=== PATIENT | female | born 1965 | race Caucasian/White ===

== ENCOUNTER 2020-11-06 06:34 | Outpatient (REF) | payer OTHER, SELFPAY ==
[2020-11-06 12:20] LABS: TSH reflex Free T4 1.19 uIU/mL (0.32-4.0); Vitamin D 25-OH Total 16.5 ng/mL (>30)
[2020-11-06 12:22] LABS: Cholesterol 152 mg/dL; Glucose Fasting 114 mg/dL (60-99); HDL Cholesterol 45 mg/dL; LDL Cholesterol Calculated 72 mg/dl; Triglycerides 176 mg/dL
== END 2020-11-06 06:35 | disposition home or self-care (01) ==
LOC: HO.HMGCLDS 06:34
PROVIDERS: PCP Internal Medicine; Visit Provider Internal Medicine
DX: Z00.01 Encounter for general adult medical examination with abnormal findings (principal); I25.2 Old myocardial infarction; I25.10 Atherosclerotic heart disease of native coronary artery without angina pectoris; D47.1 Chronic myeloproliferative disease; Z87.19 Personal history of other diseases of the digestive system; Z95.5 Presence of coronary angioplasty implant and graft
CPT/HCPCS: 36415; 80061; 82306; 82947; 84443

== ENCOUNTER 2021-05-03 14:18 | Outpatient (REF) | payer OTHER, SELFPAY ==
[2021-05-03 16:56] LABS: Estimated Average Glucose 128 mg/dL; Hemoglobin A1c % 6.1 %
[2021-05-03 17:21] LABS: Vitamin D 25-OH Total 13.7 ng/mL (>30)
== END 2021-05-03 14:19 | disposition home or self-care (01) ==
LOC: HO.HMGCLDS 14:18
PROVIDERS: PCP Internal Medicine; Visit Provider Internal Medicine
DX: E55.9 Vitamin D deficiency, unspecified (principal); R73.01 Impaired fasting glucose
CPT/HCPCS: 36415; 82306; 83036

== ENCOUNTER 2021-10-22 14:27 | Outpatient (REF) | payer OTHER, SELFPAY ==
[2021-10-22 15:29] LABS: Influenza A PCR NEGATIVE (Negative); Influenza B PCR NEGATIVE (Negative); Resp Syncy Virus RNA Qual PCR NEGATIVE (Negative); SARS COV2 PCR INHOUSE POSITIVE (Negative)
== END 2021-10-22 14:28 | disposition home or self-care (01) ==
LOC: HO.LNP 14:27
PROVIDERS: Visit Provider Physician Assistant
DX: J06.9 Acute upper respiratory infection, unspecified (principal); Z20.822 Contact with and (suspected) exposure to COVID-19
CPT/HCPCS: 0241U

== ENCOUNTER 2022-05-24 08:59 | Outpatient (REF) | payer OTHER, SELFPAY ==
[2022-05-24 11:13] LABS: Estimated Average Glucose 120 mg/dL; Hemoglobin A1c % 5.8 %
[2022-05-30 06:58] LABS: Calcium (PTHI) 11.1 mg/dL (8.6-10.4); PTHI 98 pg/mL (16-77)
== END 2022-05-24 09:00 | disposition home or self-care (01) ==
LOC: HO.HMGCLDS 08:59
PROVIDERS: PCP Internal Medicine; Visit Provider Internal Medicine
DX: R73.01 Impaired fasting glucose (principal); I25.2 Old myocardial infarction; E83.52 Hypercalcemia
CPT/HCPCS: 36415; 80048; 80061; 82306; 82330; 83036; 83970; 84443

== ENCOUNTER 2022-05-28 08:57 | Outpatient (REF) | payer OTHER, SELFPAY ==
[2022-05-28 12:06] LABS: Anion Gap 13 (12-20); Blood Urea Nitrogen 13 mg/dL (9-16); Calcium 10.7 mg/dL (8.4-10.2); Carbon Dioxide 25 mmol/L (22-29); Chloride 106 mmol/L (96-108); Cholesterol 182 mg/dL; Estimated Glomerular Filt Rate > 60; Glucose Fasting 105 mg/dL (60-99); HDL Cholesterol 48 mg/dL; LDL Cholesterol Calculated 102 mg/dl; Potassium 4.2 mmol/L (3.3-5.1); Sodium 140 mmol/L (135-145); TSH reflex Free T4 0.86 uIU/mL (0.32-4.0); Triglycerides 161 mg/dL; Vitamin D 25-OH Total 17.4 ng/mL (>30)
[2022-06-02 13:38] LABS: Calcium, Ionized 5.5 mg/dL (4.8-5.6)
== END 2022-05-28 08:58 | disposition home or self-care (01) ==
LOC: HO.HMGCLDS 08:57
PROVIDERS: PCP Internal Medicine; Visit Provider Internal Medicine
DX: R73.01 Impaired fasting glucose (principal); E83.52 Hypercalcemia; E55.9 Vitamin D deficiency, unspecified; D47.1 Chronic myeloproliferative disease; I25.2 Old myocardial infarction; Z87.19 Personal history of other diseases of the digestive system
CPT/HCPCS: 36415; 80048; 80061; 82306; 82330; 84443

== ENCOUNTER → 2022-06-19 13:19 | Outpatient (BNVA) | payer OTHER, SELFPAY | PROVIDERS: PCP Internal Medicine; Visit Provider Internal Medicine Endocrinology, Diabetes & Metabolism | DX: E83.52 Hypercalcemia (principal) ==

== ENCOUNTER 2022-06-26 14:27 | Outpatient (REF) | payer OTHER, SELFPAY ==
--- NOTE | ~2022-06-26 | MM_ITS ---
EXAMINATION: BONE DENSITOMETRY CLINICAL INDICATION: Endocrine disorder, unspecified. COMPARISON: None (current study represents initial baseline exam). TECHNIQUE: Using a [employer] DXA System (software version: 13.1) manufactured by [employer], dual-energy x-ray absorptiometry was performed of the lumbar spine, left hip and left forearm radius 33%. The images are of good technical quality. Summary results are attached. FINDINGS: AP SPINE L1-L4: BMD 1.132 g/cm2, Z-score 0.3, T-score -0.4, normal. LEFT FEMUR, NECK: BMD 0.917 g/cm2, Z-score 0.0, T-score -0.9, normal. LEFT FEMUR, TOTAL: BMD 0.945 g/cm2, Z-score 0.1, T-score -0.5, normal. LEFT FOREARM RADIUS 33%: BMD 0.891 g/cm2, Z-score 0.9, T-score 0.2, normal. IDENTIFIED RISK FACTORS: Hyperparathyroidism. Low calcium intake. Menopause. HISTORY OF FRACTURE: None listed. MEDICATIONS: Vitamin D. MM/XR DEXA appendicular skeleton IMPRESSION: 1. DIAGNOSIS: Normal bone density based on the lowest T-score value of -0.9 in the femoral neck applying World Health Organization criteria. 2. 10-YEAR FRACTURE RISK PREDICTION, FRAX: According to the guidelines, FRAX calculation should only be performed on patients in the osteopenia bone density category. Therefore, FRAX was not performed on this patient.? 3. Treatment Recommendations: NOF guidelines recommend consideration for treatment in postmenopausal women and men age 50 and older presenting with the following: -A hip or vertebral (clinical or morphometric) fracture. -T-score less than or equal to -2.5 at the femoral neck or spine after appropriate evaluation to exclude secondary causes. -Low bone mass at the hip or spine and a 10-year fracture probability by FRAX of greater than or equal to 3% for hip fracture or greater than or equal to 20% for major osteoporotic fracture based on the [place] adapted WHO algorithm. 4. Other Recommendations: All treatment decisions require clinical judgment and consideration of individual patient factors, including patient preferences, comorbidities, previous drug use, risk factors not captured in the FRAX model (e.g. frailty, falls, vitamin D deficiency, increased bone turnover, interval significant decline in bone density) and possible under or overestimation of fracture risk by FRAX. FUTURE SCAN RECOMMENDATION: People with diagnosed cases of osteoporosis or at high risk for fracture should have regular bone mineral density tests. For patients eligible for Medicare, routine testing is allowed once every 2 years. The testing frequency can be increased to one year for patients who have rapidly progressing disease, those who are receiving or discontinuing medical therapy to restore bone mass, or have additional risk factors.
== END 2022-06-26 14:28 | disposition home or self-care (01) ==
LOC: HO.MAMMO 14:27
PROVIDERS: PCP Internal Medicine; Visit Provider Internal Medicine Endocrinology, Diabetes & Metabolism
DX: Z13.820 Encounter for screening for osteoporosis (principal); E34.9 Endocrine disorder, unspecified; Z78.0 Asymptomatic menopausal state
CPT/HCPCS: 77081

== ENCOUNTER 2022-06-28 08:02 | Outpatient (REF) | payer OTHER, SELFPAY ==
[2022-06-28 09:16] LABS: Albumin Level 4.7 g/dL (3.5-5.0); Calcium 10.8 mg/dL (8.4-10.2); Estimated Glomerular Filt Rate > 60
[2022-06-28 09:25] LABS: Creatinine, mg/dL 37.06
[2022-06-28 18:28] LABS: Creatinine, 24Hr Urine 1.1 G/Day (1.0-2.0); Total Volume 24 Hour Urine 3100 mL
[2022-06-29 15:44] LABS: Calcium, 24 Hr Urine 40 mg/24 h; Calcium/Creatinine Ratio 36 mg/g creat (30-275); Creatinine 24Hr Urine 1.12 g/24 h (0.50-2.15)
[2022-06-30 15:44] LABS: Calcium (PTHI) 10.9 mg/dL (8.6-10.4); PTHI 60 pg/mL (16-77)
== END 2022-06-28 08:03 | disposition home or self-care (01) ==
LOC: HO.LAB 08:02
PROVIDERS: PCP Internal Medicine; Visit Provider Internal Medicine Endocrinology, Diabetes & Metabolism
DX: E83.52 Hypercalcemia (principal)
CPT/HCPCS: 36415; 82040; 82310; 82340; 82565; 82570; 83970

== ENCOUNTER → 2022-10-17 16:37 | Outpatient (BNVA) | payer OTHER, SELFPAY | PROVIDERS: PCP Internal Medicine; Visit Provider Internal Medicine Endocrinology, Diabetes & Metabolism ==

== ENCOUNTER 2022-10-25 08:14 | Outpatient (REF) | payer OTHER, SELFPAY ==
[2022-10-25 11:50] LABS: Alanine Aminotransferase 33 U/L (0-31); Anion Gap 15 (12-20); Aspartate Amino Transferase 25 U/L (5-31); Blood Urea Nitrogen 17 mg/dL (9-16); Calcium 9.9 mg/dL (8.4-10.2); Carbon Dioxide 29 mmol/L (22-29); Chloride 105 mmol/L (96-108); Cholesterol 183 mg/dL; Estimated Glomerular Filt Rate > 60; Glucose Fasting 120 mg/dL (60-99); HDL Cholesterol 49 mg/dL; LDL Cholesterol Calculated 90 mg/dl; Potassium 4.9 mmol/L (3.3-5.1); Sodium 144 mmol/L (135-145); Triglycerides 224 mg/dL
[2022-10-25 12:08] LABS: Vitamin D 25-OH Total 34.6 ng/mL (>30)
[2022-10-28 18:28] LABS: Calcium (PTHI) 9.8 mg/dL (8.6-10.4); PTHI 75 pg/mL (16-77)
== END 2022-10-25 08:15 | disposition home or self-care (01) ==
LOC: HO.HMGCLDS 08:14
PROVIDERS: Absent Provider Internal Medicine Endocrinology, Diabetes & Metabolism; PCP Internal Medicine; Visit Provider Internal Medicine
DX: Z00.01 Encounter for general adult medical examination with abnormal findings (principal); D47.1 Chronic myeloproliferative disease; E55.9 Vitamin D deficiency, unspecified; I25.10 Atherosclerotic heart disease of native coronary artery without angina pectoris; I25.2 Old myocardial infarction; R73.01 Impaired fasting glucose; Z86.39 Personal history of other endocrine, nutritional and metabolic disease
CPT/HCPCS: 36415; 80048; 80061; 82306; 83970; 84450; 84460; 86787

== ENCOUNTER 2023-12-21 13:27 | Outpatient (AMB) | payer OTHER, SELFPAY ==
--- NOTE | 2023-12-21 13:48 | MHC.PC.OV ---
Vital Signs 12/21/23 13:49 Height 5 ft 3 in Weight 170 lb BMI 30.1 BP 120/78 Blood Pressure Location Lt brachial Position Sitting Pulse 74 Pulse Source Pulse Oximeter Pulse Oximetry (%) 98 Oxygen Delivery Method Room Air Intake Visit Reasons: PE Intake Note: pt is here for physical exam mammo: 05/09/23 pap: due colonoscopy: 2021, normal bone density: 06/2022 Outpatient Interviewing Clerk Required: No Accompanied by: Self / Same As Patient Allergies tetracycline Adverse Reaction (Unknown, Verified 12/28/23 02:28) nausea Medication List - Last Reconciled 12/28/23 by Lorraine Almaguer MD aspirin 81 mg PO DAILY atorvastatin 40 mg PO DAILY calcium crb,[id number]-genis 300-200-13.5 mg-unit-mg (Citracal Plus Bone Density Builder) tabs PO hydroxyurea 1,000 mg PO DAILY Tobacco use date assessed: 12/21/23 Dental Screening Dental Screen Date: 12/21/23 Did you have a dental visit in the last 12 months?: Yes Did you have a dental problem in the last 6 months where you did not have access to dental care?: No Was dental information given to patient?: Patient has dentist HPI PE HPI Details 58-year-old lady with history of Crohn's disease, thrombocytosis, history non STEMI and coronary artery disease status post stenting, primary myelofibrosis and impaired fasting glucose, here today for physical exam.. She is up-to-date with her screening mammogram, done 05/09/2023, and is up-to-date with her colonoscopy, done by Dr. Mendes in 2021 which showed presence of hemorrhoids but otherwise was essentially unremarkable. A bone density was ordered by Dr. Gutiérrez, her telecommunications line mechanic, last 2022 which showed normal bone density in lumbar spine left femoral neck and left femur.. COUNTS INCLUDE 234 BEDS AT THE [facility] Medical History (Updated 12/21/23 @ 14:22 by Lorraine Almaguer MD) History of hyperparathyroidism Primary hyperparathyroidism Impaired fasting glucose Vitamin D deficiency Heartburn Thrombocytosis History of Crohn's disease History of non-ST elevation myocardial infarction (NSTEMI) Coronary artery disease Primary myelofibrosis Surgical History H/O parathyroidectomy History of bone marrow biopsy Hx of colonoscopy History of heart artery stent Social History Housing: House Alcohol intake: current Patient Tobacco Use Status: Former Tobacco user (35 years ago ) Tobacco use type: Cigarette Years Smoked: 10 years e-Cigarette/Vaping Use: Never Used Current occupational status: employed Cognitive needs: No Hearing needs: No Vision needs: Yes Questionnaire PHQ-9 Over the last 2 weeks, how often have you been bothered by any of the following problems? 1. Little interest or pleasure in doing things: not at all 2. Feeling down, depressed, or hopeless: not at all 3. Trouble falling or staying asleep, or sleeping too much: more than half the days 4. Feeling tired or having little energy: more than half the days 5. Poor appetite or overeating: several days 6. Feeling bad about yourself - or that you are a failure or have let yourself or your family down: not at all 7. Trouble concentrating on things, such as reading the newspaper or watching television: not at all 8. Moving or speaking so slowly that other people could have noticed. Or the opposite - being so fidgety or restless that you have been moving around a lot more than usual: not at all 9. Thoughts that you would be better off or of hurting yourself in some way: not at all Total score: 5 Depression Screening Interpretation: Negative Depression Screening Done: Yes 08496 - PHQ-9 Billing: Yes Source: Developed by Drs. Eugene Jimenez, Sirisha Cruz, Александр Nieves and colleagues, with an educational jessi from [employer]. Thrive Questionnaire Date Thrive assessed: 12/21/23 I am a: Patient What is your living situation today?: I have a steady place to live Within the past 12 months, did the food you bought not last and you didn't have the money to get more?: Never true Within the past 12 months, did you worry whether your food would run out before you got money to buy more?: Never true Do you have trouble paying for medicines?: No Do you have trouble getting transportation to medical appointments?: No Do you have trouble paying your heating and electricity bill?: No Do you have trouble taking care of your child, family member or friend?: No Do you have trouble with day-to-day activities such as bathing, preparing meals, shopping, managing finances, etc.?: No Are you currently unemployed and looking for a job?: No Are you interested in more education?: No Please select the resources that you would like help with: Housing/Intermediate Currently or been in a relationship where the following occur: No concerns reported THRIVE Score: 0 AUDIT C Alcohol Use Questionnaire (AUDIT-C) 1. How often do you have a drink containing alcohol?: Monthly or less 2. How many drinks containing alcohol do you have on a typical day when you are drinking?: 1 or 2 3. How often do you have six or more drinks on one occasion?: Never Total Score: 1 Score Reviewed/Action Taken: Yes JAY-7 AMB Questionnaire JAY-7 Date JAY - 7 assessed: 12/21/23 Feeling nervous, anxious, or on edge: 0 = Not at all Not being able to stop or control worryin = Not at all Worrying too much about different things: 0 = Not at all Trouble relaxin = Not at all Being so restless that it is hard to sit still: 0 = Not at all Becoming easily annoyed or irritable: 0 = Not at all Feeling afraid as if something awful might happen: 0 = Not at all Total JAY-7 score (0-4 normal; 5-9 mild; 10-14 moderate; 15-21 severe): 0 Source: Developed by Drs. Eugene Jimenez, Sirisha Cruz, Александр Nieves and colleagues, with an educational jessi from [employer]. JAY-7 Assessment Billing JAY-7 Assessment Tool: JAY-7 Assessment 72414 Review of Systems Const Denies body aches, Denies fatigue, Denies fever(s), Denies headache(s) and Denies weakness Eyes Denies change in vision ENT Denies dizziness, Denies headache(s), Denies nasal congestion, Denies nasal discharge and Denies sore throat Card Denies chest pain, Denies lightheadedness, Denies palpitations and Denies dyspnea Resp Denies cough, Denies dyspnea and Denies wheezing GI Denies abdominal pain, Denies change in bowel habits and Denies heartburn (Controlled with famotidine) Denies hematuria, Denies urinary frequency, Denies dysuria and Denies urinary urgency Musc Denies back pain, Denies myalgias, Denies arthralgias, Denies muscle weakness and Denies stiffness Skin/Breast Denies rash Neuro Denies dizziness, Denies headache(s) and Denies weakness Psych Reports no additional complaints Endo Denies fatigue, Denies polydipsia, Denies polyuria and Denies palpitations Graham/Lymph Denies easy bruising Aller/Immun Denies seasonal rhinorrhea and Denies wheezing Physical exam (Primary Care) Vital Signs: Last Vital Signs Pulse 74 12/21/23 13:49 BP 120/78 12/21/23 13:49 Pulse Ox 98 12/21/23 13:49 Oxygen Delivery Method Room Air 12/21/23 13:49 BMI result Body Mass Index 30.1 Tobacco/Smoking Status: Tobacco use Status Tobacco use date assessed 12/21/23 12/21/23 13:51 Patient Tobacco Use Status Former Tobacco user (35 12/21/23 13:51 years ago ) Tobacco use type Cigarette 12/21/23 13:51 e-Cigarette/Vaping Use Never Used 12/21/23 13:51 PHQ-9: PHQ-9 Score PHQ-9: Total score 5 12/21/23 14:22 Depression Screening Interpretation: Negative Thrive Assessment: Date of Thrive Assessment Date Thrive assessed 12/21/23 12/21/23 13:51 Currently or been in a relationship where the following occur: No concerns reported Const General: cooperative, comfortable and no acute distress Orientation/consciousness: patient oriented x3 HENMT Ears: external ears normal and EAC's normal General nose exam: Normal external nose present Mouth: oropharynx normal and moist mucous membranes Eyes General: appearance normal, both eyes and all related structures Neck Neck: Yes full ROM, Yes no lymphadenopathy and Yes supple Chest Breast/axilla inspection: normal inspection of the breasts Breast/axilla palpation: normal palpation of the breasts and normal palpation of the axillae Resp Effort & Inspection: normal respiratory effort and able to speak in complete sentences Auscultation: clear to auscultation bilaterally Cardio Rate: regular rate Rhythm: regular rhythm Heart sounds: S1 normal heart sound present and S2 normal heart sound present GI Inspection: Yes normal to inspection Palpation (GI): Soft to palpation, nontender and no masses Auscultation: normal bowel sounds General: Yes no CVA tenderness Back/Spine/Pelvis Back: no CVA tenderness and No back tenderness Skin Other: Healed surgical scar on anterior neck Neuro General: patient oriented x3, gait normal, tone normal, moves all extremities, Normal light touch and pain sensation and no focal motor deficits Cognition (Neuro): normal cognition Gait exam (Neuro): Normal gait present Motor exam (neuro): 5/5 motor strength present throughout Extrem General: Yes full ROM, Yes no joint enlargement, Yes no clubbing, cyanosis or edema, Yes no pedal edema and Yes normal gait Psych Appearance: grossly normal and well kempt Mental Status: mental status grossly normal Speech and movement: Normal speech and movement present Affect: normal affect Thought process: Normal thought process present Assessment and Plan Assessment & Plan (1) Annual visit for general adult medical examination with abnormal findings: Code(s): Z00.01 - Encounter for general adult medical examination with abnormal findings Plan: Will check appropriate labs. Recommended dental visit every 6 months and regular eye exams, yearly. Take adequate calcium in diet and vitamin-D 3 at 2000 IU per cap once a day, in addition to weight-bearing exercises to help maintain good muscle tone and weight control. Instructed to do self-breast exam, and recommended to get yearly mammogram, she is up-to-date with her screening colonoscopy done by Dr Mendes . Declines cervical cancer screening and pelvic exam. She has had only COVID vaccines, reminded to get the booster but does not want to get the flu shot, Tdap shingles vaccine or pneumonia vaccine (2) Impaired fasting glucose: Code(s): R73.01 - Impaired fasting glucose Plan: Your previous fasting blood sugars were elevated above 100 mg/dL. Impaired glucose metabolism increases the risk for developing diabetes mellitus type 2, as well as heart attack and stroke later on. Lifestyle changes that promotes weight loss, healthy eating habits, and regular exercise are important, and can prevent the progression to diabetes (3) Coronary artery disease: Code(s): I25.10 - Atherosclerotic heart disease of [place] coronary artery without angina pectoris Qualifiers: Associated angina: without angina Coronary Disease-Associated Artery/Lesion type: [place] artery [place] vs. transplanted heart: [place] heart Qualified Code(s): I25.10 - Atherosclerotic heart disease of [place] coronary artery without angina pectoris Plan: Currently on aspirin 81 mg daily and atorvastatin 40 mg daily (4) Primary myelofibrosis: Code(s): D47.1 - Chronic myeloproliferative disease Plan: Followed by hematology currently on hydroxy urea (5) History of Crohn's disease: Comment: Followed by Dr. Mendes Code(s): Z87.19 - Personal history of other diseases of the digestive system Plan: Followed by Dr. Cummings, recently had colonoscopy done which showed unremarkable findings except for hemorrhoids Orders: Orders Hemoglobin A1c 12/21/23 I25.10 - Atherosclerotic heart disease of [place] coronary artery without angina pectoris, R73.01 - Impaired fasting glucose, Z86.39 - Personal history of other endocrine, nutritional and metabolic disease Calcium, Ionized 12/21/23 I25.10 - Atherosclerotic heart disease of [place] coronary artery without angina pectoris, R73.01 - Impaired fasting glucose, Z86.39 - Personal history of other endocrine, nutritional and metabolic disease Basic Metabolic Panel Fasting 12/21/23 I25.10 - Atherosclerotic heart disease of [place] coronary artery without angina pectoris, R73.01 - Impaired fasting glucose, Z86.39 - Personal history of other endocrine, nutritional and metabolic disease Lipid Panel 12/21/23 I25.10 - Atherosclerotic heart disease of [place] coronary artery without angina pectoris, R73.01 - Impaired fasting glucose, Z86.39 - Personal history of other endocrine, nutritional and metabolic disease Alanine Aminotransferase 12/21/23 I25.10 - Atherosclerotic heart disease of [place] coronary artery without angina pectoris, R73.01 - Impaired fasting glucose, Z86.39 - Personal history of other endocrine, nutritional and metabolic disease Aspartate Amino Transferase 12/21/23 I25.10 - Atherosclerotic heart disease of [place] coronary artery without angina pectoris, R73.01 - Impaired fasting glucose, Z86.39 - Personal history of other endocrine, nutritional and metabolic disease Vitamin D 25-OH Total 12/21/23 I25.10 - Atherosclerotic heart disease of [place] coronary artery without angina pectoris, R73.01 - Impaired fasting glucose, Z86.39 - Personal history of other endocrine, nutritional and metabolic disease Coding Level of Care Code Est Pt Level 3 (62180) Est Pt Prev Care 40-64y(15648) Diagnoses Annual visit for general adult medical examination with abnormal findings Z00.01 Impaired fasting glucose R73.01 Coronary artery disease involving [place] coronary artery of [place] heart without angina pectoris I25.10 Associated angina: without angina Coronary Disease-Associated Artery/Lesion type: [place] artery [place] vs. transplanted heart: [place] heart Primary myelofibrosis D47.1 History of Crohn's disease Z87.19 Additional Codes JAY-7 Assessment Billing - JAY-7 Assessment Tool: JAY-7 Assessment 32541 ([id number])
[2023-12-21 13:49] VITALS: BP 120/78; PULSE 74; O2SAT 98; BMI 30.1
== END 2023-12-21 14:44 | disposition home or self-care (01) ==
PROVIDERS: PCP Internal Medicine; Visit Provider Internal Medicine
DX: Z00.01 Encounter for general adult medical examination with abnormal findings (principal); R73.01 Impaired fasting glucose; I25.10 Atherosclerotic heart disease of native coronary artery without angina pectoris; D47.1 Chronic myeloproliferative disease; Z87.19 Personal history of other diseases of the digestive system
CPT/HCPCS: 99213; 99396

== ENCOUNTER 2024-04-18 06:31 | Outpatient (REF) | payer OTHER, SELFPAY ==
[2024-04-18 10:24] LABS: Estimated Average Glucose 140 mg/dL; Hemoglobin A1C 164.0259 umol/L; Hemoglobin A1c % 6.5 % (<6.0); Total Hemoglobin (HGBA1C) 3436.6377 umol/L
[2024-04-18 10:56] LABS: Alanine Aminotransferase 21 U/L (0-31); Anion Gap 14 (12-20); Aspartate Amino Transferase 24 U/L (5-31); Blood Urea Nitrogen 13 mg/dL (9-16); Calcium 10.2 mg/dL (8.4-10.2); Carbon Dioxide 29 mmol/L (22-29); Chloride 102 mmol/L (96-108); Cholesterol 172 mg/dL (<200); Estimated Glomerular Filt Rate > 60; Glucose Fasting 133 mg/dL (60-99); HDL Cholesterol 49 mg/dL (>40); LDL Cholesterol Calculated 95 mg/dL (<100); Potassium 4.5 mmol/L (3.3-5.1); Sodium 140 mmol/L (135-145); Triglycerides 142 mg/dL (<150)
[2024-04-18 11:14] LABS: Vitamin D 25-OH Total 38.2 ng/mL (>30)
[2024-04-25 11:44] LABS: Calcium, Ionized 5.4 mg/dL (4.7-5.5)
== END 2024-04-18 06:32 | disposition home or self-care (01) ==
LOC: HO.HMGCLDS 06:31
PROVIDERS: PCP Internal Medicine; Visit Provider Internal Medicine
DX: R73.01 Impaired fasting glucose (principal); Z86.39 Personal history of other endocrine, nutritional and metabolic disease; I25.10 Atherosclerotic heart disease of native coronary artery without angina pectoris
CPT/HCPCS: 36415; 80048; 80061; 82306; 82330; 83036; 84450; 84460

== ENCOUNTER 2024-05-15 15:43 | Inpatient (IN) | payer OTHER, SELFPAY ==
--- NOTE | ~2024-05-15 | CT_ITS ---
EXAMINATION: CT ABDOMEN AND PELVIS WITH CONTRAST CLINICAL INFORMATION: Abdominal pain, blood in stool COMPARISON: None available. TECHNIQUE: Multidetector volumetric images were obtained from the superior aspect of the liver through the pubic symphysis following administration 85 mL of Omnipaque 350 intravenous contrast. Sagittal and coronal reformatted images were obtained on the technologist's workstation. Oral contrast: No This CT examination was performed using dose optimization techniques as appropriate, variously including the following: *Automated exposure control *Adjustment of mA and/or kV according to patient size (this includes techniques or standardized protocols for targeted exams where dose is matched to indication/reason for exam; i.e. extremities or head) *Use of iterative reconstruction technique DLP: 497 mGy-cm FINDINGS: LUNG BASES: Unremarkable. ABDOMINAL AND PELVIC WALL: Unremarkable. LIVER AND BILIARY TREE: Hepatic steatosis. Hepatomegaly. GALLBLADDER: Cholelithiasis, no CT findings of acute cholecystitis. PANCREAS: Unremarkable. SPLEEN: Spleen measures upper limits of normal. ADRENAL GLANDS: Unremarkable. KIDNEYS AND URETERS: Unremarkable. GASTROINTESTINAL TRACT: Relatively featureless appearance of the rectosigmoid colon with minimal pericolonic stranding may reflect early colitis. Appendix is within normal limits. VASCULAR: Unremarkable LYMPH NODES/PERITONEUM: No lymphadenopathy. FREE FLUID: None. BLADDER: Unremarkable. PELVIC VISCERA: Unremarkable. OSSEOUS STRUCTURES: Unremarkable. CT/CT abdomen pelvis w IV con IMPRESSION: * Relatively featureless appearance of the rectosigmoid colon with minimal pericolonic stranding may reflect early colitis. Featureless appearance is suggestive of inflammatory colitis, infectious or ischemic colitis may be considered but is felt to be less likely. * Hepatomegaly and hepatic steatosis. * Cholelithiasis, no CT findings of acute cholecystitis. Electronically signed by: Deneen Weeks MD 05/15/2024 06:08 PM [facility]
--- OUTSIDE RECORDS SUMMARY | 2024-05-15 15:46 | XMS_ITS | Continuity of Care Document ---
Author Organization [facility]. If a dditional information is needed, contact Health Information Management at [phone] Address [address] [place] [address] Phone Care Team Providers Care Railroad Track Inspector Name Role Phone Unavailable Unavailable Unavailable Unavailable Unavailable Unavailable Unavailable Unavailable Unavailable Unavailable Unavailable Allergies and Adverse Reactions Tetracycline Analogues(Aller gy) Onset: 30-Jul-2022 Reaction:NAUSEA Medications 1 ML phenylephrine hydrochlo ride 10 MG/ML Injection [Vazculep];Provider Administration Instructions:CAUTION: This medication is a vesicant and should bediluted and administered slowly through a running IV. Quantity:1 Letzring Humberto K DO Start:06-Aug-2022 Comments:Provider Administration Instructions:CAUTION: This medication is a vesicant and should bediluted and administered slowly through a running IV. 1 ML ePHEDrine sulfate 50 MG /ML Injection;Provider Administration Instructions:LASA LOOK ALIKE SOUND ALIKE MEDICATION*NAME ALERT* ePHEDrine Quantity:1 Letzring Humberto K DO Start:06-Aug-2022 Status:Discontinued Comments:Provider Administration Instructions:LASA LOOK ALIKE SOUND ALIKE MEDICATION*NAME ALERT* ePHEDrine 2 ML magnesium sulfate 500 M G/ML Injection;Provider Administration Instructions:1 GM OF MAGNESIUM SULFATE = 8.12 MEQ OF MAGNESIUM SULFATE Quantity:1 Letzring Humberto K DO Start:06-Aug-2022 Status:Discontinued Comments:Provider Administration Instructions:1 GM OF MAGNESIUM SULFATE = 8.12 MEQ OF MAGNESIUM SULFATE LIDOCAINE HCL/PF 2% VIAL (10 0 MG/5 ML) Quantity:1 Letzring Humberto K DO Start:06-Aug-2022 Status:Discontinued ceFAZolin 1000 MG Injection;Provider Administration Instructions:1 GRAM/SWFI 10ML:Dilute in 10 ml Sterile WaterIV Push over minimum 3 minutes2 GRAM/SWFI 20ML:Dilute each 1 gram vial in 10 ml Sterile WaterIV Push each 1 gram vial over minimum 3 minutes3 GRAM/SWFI 30ML: Quantity:1 Oliver Dowell DO Start:06-Aug-2022 Comments:Provider Administration Instructions:1 GRAM/SWFI 10ML:Dilute in 10 ml Sterile WaterIV Push over minimum 3 minutes2 GRAM/SWFI 20ML:Dilute each 1 gram vial in 10 ml Sterile WaterIV Push each 1 gram vial over minimum 3 minutes3 GRAM/SWFI 30ML: 1 ML ketorolac tromethamine 30 MG/ML Injection;Provider Administration Instructions:IF AN IV AND PO PAIN MEDICATION ARE ORDERED FOR THE SAMEPAIN LEVEL, THE PO MEDICATION WILL BE ADMINISTEREDPREFERENTIALLY WHEN THE PATIENT IS ABLE TO TAKE PO.(May administer less potent prescribed medication based Quantity:1 Oliver Dowell DO Start:06-Aug-2022 Status:Discontinued Comments:Provider Administration Instructions:IF AN IV AND PO PAIN MEDICATION ARE ORDERED FOR THE SAMEPAIN LEVEL, THE PO MEDICATION WILL BE ADMINISTEREDPREFERENTIALLY WHEN THE PATIENT IS ABLE TO TAKE PO.(May administer less potent prescribed medication based 1 ML dexamethasone phosphate 10 MG/ML Injection Quantity:1 Oliver Dowell DO Start:06-Aug-2022 Status:Discontinued 2 ML ondansetron 2 MG/ML Injection;Provider Administration Instructions:ADMINISTER SLOW IVP OVER 2 MINUTESIF PATIENT HAS BOTH PHENERGAN (PROMETHAZINE) ANDZOFRAN (ONDANSETRON) ORDERED, GIVE PHENERGAN FIRST ANDZOFRAN 1 HOUR LATER IF THE PHENERGAN IS INEFFECTIVE INRELIEVING NAUSEA AND/OR VOMITING. Quantity:1 Oliver Dowell DO Start:06-Aug-2022 Status:Discontinued Comments:Provider Administration Instructions:ADMINISTER SLOW IVP OVER 2 MINUTESIF PATIENT HAS BOTH PHENERGAN (PROMETHAZINE) ANDZOFRAN (ONDANSETRON) ORDERED, GIVE PHENERGAN FIRST ANDZOFRAN 1 HOUR LATER IF THE PHENERGAN IS INEFFECTIVE INRELIEVING NAUSEA AND/OR VOMITING. KETAMINE HCL 50 MG/ML Syring e Quantity:1 Oliver Dowell DO Start:06-Aug-2022 Status:Discontinued 20 ML propofol 10 MG/ML Inje ction [Diprivan];Provider Administration Instructions:CAUTION: This medication is a vesicant and should bediluted and administered slowly through a running IV. MAY ONLY BE BOLUSED BY PHYSICIAN WHO IS PRIVILEDGEDTO GIVE DEEP SEDATION Quantity:1 Michael Maza MD Start:06-Aug-2022 Status:Discontinued Comments:Provider Administration Instructions:CAUTION: This medication is a vesicant and should bediluted and administered slowly through a running IV. MAY ONLY BE BOLUSED BY PHYSICIAN WHO IS PRIVILEDGEDTO GIVE DEEP SEDATION acetaminophen 500 MG Oral Tablet;Provider Administration Instructions:(May administer less potent prescribed medication basedon patient request per the organization's medicationmanagement policy.) Quantity:1 Michael Maza MD Start:06-Aug-2022 Status:Discontinued Comments:Provider Administration Instructions:(May administer less potent prescribed medication basedon patient request per the organization's medicationmanagement policy.) gabapentin 300 MG Oral Capsu le [Neurontin] Quantity:1 Michael Maza MD Start:06-Aug-2022 Status:Discontinued hydroxyurea 500 MG Oral Caps ule;500 MILLIGRAM PO DAILY Start:30-Jul-2022 Comments:500 MG PO DAILY omeprazole 20 MG Delayed Rel ease Oral Capsule;20 MILLIGRAM PO DAILY Start:30-Jul-2022 Comments:20 MG PO DAILY BIOTIN;DAILY Start:30-Jul-2022 Comments:DAILY atorvastatin 40 MG Oral Tabl et [Lipitor];40 MILLIGRAM PO DAILY Start:30-Jul-2022 Comments:40 MG PO DAILY aspirin 81 MG Delayed Releas e Oral Tablet;81 MILLIGRAM PO DAILY Start:30-Jul-2022 Comments:81 MG PO DAILY
--- OUTSIDE RECORDS SUMMARY | 2024-05-15 15:46 | XMS_ITS ---
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 Generated for Marty alva/Abiola/eTransmitting on:?05/15/2024 03:45 PM EST
--- OUTSIDE RECORDS SUMMARY | 2024-05-15 15:46 | XMS_ITS | Patient Health Record ---
Author Organization [facility] Address [address] [facility] [place] [address] Care Team Providers Care Director Of Clinical Services Name Role Phone Raúl Perkins Unavailable [phone] Reason For Referral No Information Encounters Encounter Location Date Provider Diagnosis [facility] [place] [address] 07/27/2023 Raúl Perkins Plan Of Treatment No Information Insurance Providers Payer Name Payer Address Payer Phone Subscriber Number Group Number Insured Name Patient Relationship to Insured Coverage Start Date Coverage End Date [facility] [id number] [address] [address] [place] [address] Ashley Hess Self - patient is the insured
--- NOTE | 2024-05-15 15:53 | ED.GENADULT ---
HPI - General Adult General Chief complaint: GI Bleed Stated complaint: Blood in stood, frequent voiding, abdominal pain Time Seen by Provider: 05/15/24 17:03 Source: patient and family Mode of arrival: ambulatory Limitations: no limitations History of Present Illness ED Provider: JALIL Murillo HPI narrative: This is a 58-year-old female past medical history of coronary artery disease, STEMI, Crohn's disease, thrombocytosis, primary myelofibrosis, presenting to the emergency department with diffuse abdominal pain x2 weeks and bloody stools x1 day. She reports she has had 4 episodes of sandeep red blood when she goes to the bathroom she reports blood is mixed with stool as well as mucus. She reports her last colonoscopy was over a year ago and they told her her Crohn's disease had resolved. She is followed by GI at [facility]. She reports abdominal pain is very uncomfortable throughout her entire abdomen and she feels like she is unable to eat or drink. Denies fevers, chills abdominal trauma, headache, vision changes, rectal pain, chest pain, shortness of breath. Related Data Home Medications ?Medication ?Instructions ?Recorded ?Confirmed aspirin 81 mg tablet,delayed 81 mg PO DAILY 11/01/20 10/10/22 release atorvastatin 40 mg tablet 40 mg PO DAILY 11/01/20 10/10/22 hydroxyurea 500 mg capsule 1,000 mg PO DAILY 11/01/20 10/10/22 calcium 300 mg-vit D3 200 tab PO 10/10/22 10/10/22 [id number] 13.5 mg tablet (Citracal Plus Bone Density Builder) Allergies Allergy/AdvReac Type Severity Reaction Status Date / Time tetracycline AdvReac Unknown nausea Verified 05/15/24 15:57 Review of Systems Review of Systems: Yes all other systems are reviewed and are negative FOR[facility]LY [facility] Past Medical History Attestation statement: The following information was validated with the patient. Source: old records reviewed and nursing notes reviewed Medical History History of hyperparathyroidism Primary hyperparathyroidism Impaired fasting glucose Vitamin D deficiency Heartburn Thrombocytosis History of Crohn's disease History of non-ST elevation myocardial infarction (NSTEMI) Coronary artery disease Primary myelofibrosis Surgical History H/O parathyroidectomy History of bone marrow biopsy Hx of colonoscopy History of heart artery stent Social History Social History Housing: House Alcohol intake: current Alcohol intake frequency: holidays/special occasions only Patient Tobacco Use Status: Former Tobacco user Tobacco use type: Cigarette Years Smoked: 10 years Smoked in Last 30 Days: No e-Cigarette/Vaping Use: Never Used Use of substances other than those prescribed or required for medical reasons: No Advance Directives: No Advance Directives Information Provided: No Do you have a plan to hurt others: No Plan Patient : No Current occupational status: employed Cognitive needs: No Hearing needs: No Vision needs: Yes Physical Exam ED Vital Signs: Vital Signs - 24 hr 05/15/24 15:54 05/15/24 17:06 05/15/24 19:08 Temperature 98.2 F 98.5 F Pulse Rate 80 76 68 Respiratory Rate 18 18 20 Blood Pressure 173/91 H 147/78 H 149/73 H Pulse Oximetry 98 99 98 Oxygen Delivery Method Room Air Room Air Room Air BMI result Body Mass Index 30.1 vss Appearance: Alert.? Oriented X3.? No acute distress.? Head: Normocephalic, atraumatic, no step-offs or deformities Eyes: Pupils equal, round and reactive to light.? Neck: Normal inspection.? Neck supple.? CVS: Normal heart rate and rhythm.? Pulses normal.? Respiratory: No respiratory distress.? Breath sounds normal.? Abdomen: Soft and diffuse abdominal discomfort.? Skin: Skin warm and dry.? Normal skin color.? Normal skin turgor.? Extremities: No lower extremity edema.? No calf ttp. 5/5 strength to bilateral upper and lower extremities Neuro: Oriented X 3.? No motor deficit.? No sensory deficit. CN 2-12 intact Sensitive exam: Maya FUENTES at bedside as clinical psychologist. Normal rectal tone. Small amount of blood noted on digital rectal exam. There are non thrombosed external hemorrhoids. No palpable internal hemorrhoids. Course Course Course Narrative: This is a rapid medical exam performed by Billy Jenkins NP: Additional HPI, ROS, PE not included below will be deferred to primary provider. Patient is a 58-year-old female with history of Crohn's, NSTEMI, CAD with stent presenting to the ED with complaint of lower abdominal pain for the past few weeks. States today she had diarrhea and it was all blood, also reports episodes of melena over the past week. Plan: labs, UA Reevaluation(s) Reevaluation #1: CBC unremarkable. Chemistry no acute findings needing intervention. Repeat CBC was also unremarkable. OBS was negative however I do feel like there was blood on rectal exam. CT scan showing featureless appearance of the rectosigmoid with minimal pericolonic stranding which could reflect early colitis. Concerning for inflammatory colitis, infectious or ischemic colitis however based off patient's pain scale ischemic colitis is unlikely. Blood cultures, lactic acid and antibiotics ordered. I did reach out to GI however they are in the operating room at this time no response. Regardless, plan is for hospital admission as patient is not tolerating p.o. Time: 19:51 Reevaluation #2: Patient has been having multiple episodes of bright red blood per rectum. Time: 19:56 Medications Administered Discontinued Medications Generic Name Dose Route Start Last Admin Trade Name Freq PRN Reason Stop Dose Admin Iohexol 100 ml 05/15/24 17:47 05/15/24 17:47 Iohexol 350 Mg/Ml 100 Ml Infus..Btl IV 05/15/24 17:48 85 ml ONCE ONE Administration Medical Decision Making Medical Decision Making [facility] Narrative: 58-year-old female presents with the abdominal pain, bloody stools Physical exam Sensitive exam: Maya RN at bedside as clinical psychologist. Normal rectal tone. Small amount of blood noted on digital rectal exam. There are non thrombosed external hemorrhoids. No palpable internal hemorrhoids. Diffuse abdominal discomfort History and physical exam concerning for irritable bowel disease and possibly diverticulitis. Unlikely acute abdomen. No signs of hemodynamic instability at this time. Will rule out metabolic derangements. Unlikely that this bleeding is coming from hemorrhoids. Plan labs, imaging, urine. Differential Diagnosis Differential Diagnoses: The differential diagnosis associated with the presentation includes (History and physical exam concerning for irritable bowel disease and possibly diverticulitis. Unlikely acute abdomen. No signs of hemodynamic instability at this time. Will rule out metabolic derangements. Unlikely that this bleeding is coming from hemorrhoids.) Admission/Observation Consideration of admission/observation: Escalation of care including admission/observation considered (possible ) Consult Healthcare Provider Management of the patient was discussed with: Hospitalist Lab Data [facility] Lab Attestation statement: I reviewed the patient's lab results. 05/15/24 18:45 05/15/24 16:06 Labs: Lab Results 05/15/24 05/15/24 05/15/24 Range/Units 16:06 17:19 18:45 WBC 11.8 H 9.2 (4.8-10.8) X10*3/uL RBC 3.84 L 3.68 L (4.20-5.50) X10*6/uL Hgb 13.9 13.2 (12.0-16.0) g/dl Hct 39.6 37.9 (37.0-47.0) % MCV 103.1 H 103.0 H (80.0-98.0) fL MCH 36.2 H 35.9 H (27.0-33.0) pg MCHC 35.1 H 34.8 (31.0-35.0) g/dl RDW 13.0 13.2 (11.0-16.0) % Plt Count 393 384 (160-400) X10*3/uL MPV 9.7 9.9 (9.4-12.3) fL Immature Gran % (Auto) 0.4 0.3 (0.0-0.4) % Neut % (Auto) 83.4 H 77.5 H (45-73) % Lymph % (Auto) 11.2 L 17.2 L (20-40) % Butler % (Auto) 4.7 4.8 (2-11) % Eos % (Auto) 0.1 0.0 (0-4) % Baso % (Auto) 0.2 0.2 (0-2) % Lymph # (Auto) 1.3 1.6 (1.2-4.9) X10*3/uL Butler # (Auto) 0.6 0.4 (0.1-1.2) X10*3/uL Eos # (Auto) 0.0 0.0 (0.0-0.4) X10*3/uL Baso # (Auto) 0.0 0.0 (0.0-0.2) X10*3/uL Abs Immat Gran (auto) 0.05 H 0.03 (0.00-0.03) X10*3/uL Absolute Neuts (auto) 9.9 H 7.1 (2.0-8.3) x10*3/uL Absolute Nucleated RBC 0.000 0.000 (0.0-0.012) X10*3/uL Nucleated RBC % (auto) 0.0 0.0 (0.0-0.2) /100WBC PT 12.2 (10.9-12.4) SEC INR 1.0 (0.9-1.1) Sodium 142 (135-145) mmol/L Potassium 4.5 (3.3-5.1) mmol/L Chloride 104 (96-108) mmol/L Carbon Dioxide 26 (22-29) mmol/L Anion Gap 17 (12-20) BUN 13 (9-16) mg/dL Creatinine 0.84 (0.5-1.4) mg/dL Estim Creat Clear Calc 70.0 Estimated GFR > 60 Random Glucose 129 H (60-115) mg/dL Calcium 9.9 (8.4-10.2) mg/dL Magnesium 1.9 (1.6-2.6) mg/dL Total Bilirubin 0.6 (0.0-1.0) mg/dL AST 25 (5-31) U/L ALT 25 (0-31) U/L Alkaline Phosphatase 75 (39-117) U/L Total Protein 8.1 H (6.5-8.0) g/dL Albumin 4.7 (3.5-5.0) g/dL Lipase 27 (8-78) U/L Stool Occult Blood NEGATIVE (NEGATIVE) Independent Interpretation I performed an independent interpretation of an: CT Scan ( CT/CT abdomen pelvis w IV con IMPRESSION: * Relatively featureless appearance of the rectosigmoid colon with minimal pericolonic stranding may reflect early colitis. Featureless appearance is suggestive of inflammatory colitis, infectious or ischemic colitis may be considered but is felt to be) Radiology Impression Discussion of test interpretation with radiology: I have reviewed the radiologist's reading. External Record Review External record reviewed: Office record, Outpatient record and Prior outpatient labs Chronic Conditions Patient?s care impacted by: Other (see hpi ) Critical Care Time Critical Care Time Critical Care Time: Yes Total Critical Care Time: 35 Attestation: I attest to this time spent taking care of the patient, obtaining history, physical, reviewing labs, imaging, treatment of patients condition +/- specialist/hospitalist consult Discharge Plan Discharge Clinical Impression: History of Crohn's disease, Colitis, BRBPR (bright red blood per rectum) Prescriptions: No Action aspirin 81 mg tablet,delayed release (DR/EC) 81 mg PO DAILY hydroxyurea 500 mg capsule 1,000 mg PO DAILY atorvastatin 40 mg tablet 40 mg PO DAILY Citracal Plus Bone Density 300-200-13.5 mg-unit-mg tablet PO Print Language: French
[2024-05-15 15:54] VITALS: BP 173/91; PULSE 80; RESP 18; TEMP 36.8; O2SAT 98; BMI 30.1
[2024-05-15 16:14] LABS: MANUAL DIFF FLAG NO
[2024-05-15 16:16] LABS: Basophils Percent Auto 0.2 % (0-2); Eosinophils Percent Auto 0.1 % (0-4); Hematocrit 39.6 % (37.0-47.0); Hemoglobin 13.9 g/dl (12.0-16.0); Imm Gran Abs Auto 0.05 X10*3/uL (0.00-0.03); Imm Gran Pct Auto 0.4 % (0.0-0.4); Lymphocytes Absolute Auto 1.3 X10*3/uL (1.2-4.9); Lymphocytes Percent Auto 11.2 % (20-40); Mean Corpuscular HGB Conc 35.1 g/dl (31.0-35.0); Mean Corpuscular Hemoglobin 36.2 pg (27.0-33.0); Mean Corpuscular Volume 103.1 fL (80.0-98.0); Mean Platelet Volume 9.7 fL (9.4-12.3); Monocytes Absolute Auto 0.6 X10*3/uL (0.1-1.2); Monocytes Percent Auto 4.7 % (2-11); Neutrophils Absolute Auto 9.9 x10*3/uL (2.0-8.3); Neutrophils Percent Auto 83.4 % (45-73); Platelet Count 393 X10*3/uL (160-400); Red Blood Count 3.84 X10*6/uL (4.20-5.50); White Blood Count 11.8 X10*3/uL (4.8-10.8)
[2024-05-15 16:25] LABS: Prothrombin Time 12.2 SEC (10.9-12.4)
[2024-05-15 16:38] LABS: Albumin Level 4.7 g/dL (3.5-5.0); Anion Gap 17 (12-20); Aspartate Amino Transferase 25 U/L (5-31); Bilirubin Total 0.6 mg/dL (0.0-1.0); Blood Urea Nitrogen 13 mg/dL (9-16); Calcium 9.9 mg/dL (8.4-10.2); Carbon Dioxide 26 mmol/L (22-29); Chloride 104 mmol/L (96-108); Estimated Glomerular Filt Rate > 60; Glucose Random 129 mg/dL (60-115); Lipase 27 U/L (8-78); Magnesium 1.9 mg/dL (1.6-2.6); Potassium 4.5 mmol/L (3.3-5.1); Sodium 142 mmol/L (135-145); Total Protein 8.1 g/dL (6.5-8.0)
[2024-05-15 17:06] VITALS: BP 147/78; PULSE 76; RESP 18; O2SAT 99
[2024-05-15 17:15] LABS: Alanine Aminotransferase 25 U/L (0-31); Alkaline Phosphatase 75 U/L (39-117)
[2024-05-15 17:31] LABS: OBS Int Ctl Valid YES; OBS1 NEGATIVE (NEGATIVE)
[2024-05-15] MEDS: iohexoL 350 MG/ML 100 ML INFUS..BTL IV (17:47)
[2024-05-15 18:49] LABS: MANUAL DIFF FLAG NO
[2024-05-15 18:54] LABS: Basophils Percent Auto 0.2 % (0-2); Hematocrit 37.9 % (37.0-47.0); Hemoglobin 13.2 g/dl (12.0-16.0); Imm Gran Abs Auto 0.03 X10*3/uL (0.00-0.03); Imm Gran Pct Auto 0.3 % (0.0-0.4); Lymphocytes Absolute Auto 1.6 X10*3/uL (1.2-4.9); Lymphocytes Percent Auto 17.2 % (20-40); Mean Corpuscular HGB Conc 34.8 g/dl (31.0-35.0); Mean Corpuscular Hemoglobin 35.9 pg (27.0-33.0); Mean Platelet Volume 9.9 fL (9.4-12.3); Monocytes Absolute Auto 0.4 X10*3/uL (0.1-1.2); Monocytes Percent Auto 4.8 % (2-11); Neutrophils Absolute Auto 7.1 x10*3/uL (2.0-8.3); Neutrophils Percent Auto 77.5 % (45-73); Platelet Count 384 X10*3/uL (160-400); Red Blood Count 3.68 X10*6/uL (4.20-5.50); Red Cell Distribution Width 13.2 % (11.0-16.0); White Blood Count 9.2 X10*3/uL (4.8-10.8)
[2024-05-15 19:08] VITALS: BP 149/73; PULSE 68; RESP 20; TEMP 36.9; O2SAT 98
--- NOTE | 2024-05-15 20:26 | PM.IMHP ---
History of Present Illness Date of Service: 05/15/24 Attending physician on admission: Deysi Jung Chief Complaint: Abd pain, bloody diarrhea Pt is a 58-year-old female with a PMH significant for?CAD, STEMI in 2019 s/p stenting, Crohn's disease, hyperparathyroidism s/p partial parathyroidectomy, and 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 Patient reports symptoms began a few weeks ago with intermittent mostly lower abdominal pain. Patient's bowel movements also became irregular and with less volume. Last week noticed some of the stools appeared dark and possibly containing blood, but it was not until today when patient began experiencing 6-7 episodes of diarrhea that soon became all blood . Today also experienced diaphoresis, nausea but no vomiting, and numbness and tingling in upper extremities. Patient reports a long history of Crohn's disease with at least 3 prior hospitalizations. Last flare in November of 2023. Denies chest pain/pressure, palpitations. No shortness a breath or difficulty breathing. In the ED pt was hypertensive up to 173/91, otherwise vitals stable and WNL. Labs were grossly unremarkable. Stable H&H of 13.9/39.6 with repeat 3 hours later 13.2/37.9. No significant leukocytosis. No significant electrolyte abnormalities. Renal and hepatic function baseline. Stool was negative for occult blood though provider noted blood on digital rectal exam. CT of abdomen and pelvis showing possible early colitis suggesting inflammatory with infectious or ischemic less likely. Also showed hepatomegaly and hepatic steatosis. Pt will be admitted to the hospital for treatment and further evaluation of intractable nausea, abdominal pain, and hematochezia in the setting of Crohn's flare. Review of Systems Review of Systems: Negative except for that which is stated in the [facility] Medical History History of hyperparathyroidism Primary hyperparathyroidism Impaired fasting glucose Vitamin D deficiency Heartburn Thrombocytosis History of Crohn's disease History of non-ST elevation myocardial infarction (NSTEMI) Coronary artery disease Primary myelofibrosis Surgical History H/O parathyroidectomy History of bone marrow biopsy Hx of colonoscopy History of heart artery stent Social History Housing: House Alcohol intake: current Alcohol intake frequency: holidays/special occasions only Patient Tobacco Use Status: Former Tobacco user Tobacco use type: Cigarette Years Smoked: 10 years Smoked in Last 30 Days: No e-Cigarette/Vaping Use: Never Used Use of substances other than those prescribed or required for medical reasons: No Advance Directives: No Advance Directives Information Provided: No Do you have a plan to hurt others: No Plan Patient : No Current occupational status: employed Cognitive needs: No Hearing needs: No Vision needs: Yes Meds Allergies Allergy/AdvReac Type Severity Reaction Status Date / Time tetracycline AdvReac Unknown nausea Verified 05/15/24 15:57 Active Medications: Current Medications Acetaminophen (Acetaminophen 325 Mg Tablet) 650 mg PO Q6H PRN PRN Reason: Pain, Mild (Pain Scale 1-3), fever or headache Calcium Carbonate (Calcium Carbonate 750 Mg Tab.Chew) 750 mg PO Q4H PRN PRN Reason: Heartburn Lactated Ringer's (Lr) 1,000 mls @ 999 mls/hr IV .Q1H1M [facility] Stop: 05/15/24 21:15 Magnesium Hydroxide (Milk Of Magnesia 30 Ml Oral.Susp) 30 ml PO DAILY PRN PRN Reason: Constipation Melatonin (Melatonin 3 Mg Tablet) 6 mg PO BEDTIME PRN PRN Reason: Insomnia Ondansetron HCl (Ondansetron Hcl 4 Mg/2 Ml Vial) 4 mg IVPUSH Q8H PRN PRN Reason: Nausea and Vomiting Sodium Chloride (0.9 % Sodium Chloride Flush 3 Ml Syringe) 3 ml IVFLUSH QSHIFT [facility] Home Medications ?Medication ?Instructions ?Recorded ?Confirmed ?Last Taken ?Type aspirin 81 mg tablet,delayed 81 mg PO DAILY 11/01/20 10/10/22 Unknown History release atorvastatin 40 mg tablet 40 mg PO DAILY 11/01/20 10/10/22 Unknown History hydroxyurea 500 mg capsule 1,000 mg PO DAILY 11/01/20 10/10/22 Unknown History calcium 300 mg-vit D3 200 tab PO 10/10/22 10/10/22 Unknown History [id number] 13.5 mg tablet (Citracal Plus Bone Density Builder) Physical Exam Vital Signs and Narrative: Vital Signs: Last Vital Signs Temp 98.5 F 05/15/24 19:08 Pulse 68 05/15/24 19:08 Resp 20 05/15/24 19:08 BP 149/73 H 05/15/24 19:08 Pulse Ox 98 05/15/24 19:08 O2 Del Method Room Air 05/15/24 19:08 BMI result Body Mass Index 30.1 General: AOx3, no acute distress Resp: CTA bilaterally CVS: S1, S2, RRR GI: +BS, no distention, mild diffuse lower abd tenderness Skin: Warm, dry Neuro: Cranial nerves II-XII grossly intact bilaterally. Motor grossly intact bilaterally Extremities: No edema Psych: Appropriate affect Results Labs 05/15/24 18:45 05/15/24 16:06 Labs: Laboratory Results - last 24 hr 05/15/24 05/15/24 05/15/24 16:06 17:19 18:45 MCV 103.1 H 103.0 H MCH 36.2 H 35.9 H MCHC 35.1 H 34.8 RDW 13.0 13.2 Plt Count 393 384 MPV 9.7 9.9 Immature Gran % (Auto) 0.4 0.3 Neut % (Auto) 83.4 H 77.5 H Lymph % (Auto) 11.2 L 17.2 L Mellette % (Auto) 4.7 4.8 Eos % (Auto) 0.1 0.0 Baso % (Auto) 0.2 0.2 Lymph # (Auto) 1.3 1.6 Mellette # (Auto) 0.6 0.4 Eos # (Auto) 0.0 0.0 Baso # (Auto) 0.0 0.0 Abs Immat Gran (auto) 0.05 H 0.03 Absolute Neuts (auto) 9.9 H 7.1 Absolute Nucleated RBC 0.000 0.000 Nucleated RBC % (auto) 0.0 0.0 PT 12.2 INR 1.0 Anion Gap 17 Estim Creat Clear Calc 70.0 Estimated GFR > 60 Random Glucose 129 H Calcium 9.9 Magnesium 1.9 Total Bilirubin 0.6 AST 25 ALT 25 Alkaline Phosphatase 75 Total Protein 8.1 H Albumin 4.7 Lipase 27 Stool Occult Blood NEGATIVE Imaging Radiologist's Impressions: Impressions Abdomen/Pelvis CT 05/15/24 17:03 IMPRESSION: * Relatively featureless appearance of the rectosigmoid colon with minimal pericolonic stranding may reflect early colitis. Featureless appearance is suggestive of inflammatory colitis, infectious or ischemic colitis may be considered but is felt to be less likely. * Hepatomegaly and hepatic steatosis. * Cholelithiasis, no CT findings of acute cholecystitis. Electronically signed by: Deneen Weeks MD 05/15/2024 06:08 PM [facility] Assessment and Plan (1) BRBPR (bright red blood per rectum): Status: Acute (2) Crohn's colitis: Status: Acute Plan Pt is a 58-year-old female with a PMH significant for?CAD, STEMI in 2019 s/p stenting, Crohn's disease, hyperparathyroidism s/p partial parathyroidectomy, and 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 Pt will be admitted to the hospital for treatment and further evaluation of intractable nausea, abdominal pain, and hematochezia in the setting of Crohn's flare. Acute Crohn's flare The patient with lower abdominal pain, nausea, hematochezia CT showing likely inflammatory colitis Stool was negative for occult blood though provider noted blood on digital rectal exam. Will treat with bowel rest, IVF, IV analgesics, IV antiemetics, and Solu-Medrol 20 mg IV Q 6 Will check ESR, CRP GI consult H&H has been stable and WNL, will continue to monitor CVA/CAD Continue aspirin, statin Myelofibrosis Continue hydroxyurea Full Code Attending:?Dr. Valencia DVT Prophylaxis: Compression due to hematochezia As patient is unable to tolerate p.o., they will require a hospitalization of at least two nights for treatment and further evaluation of intractable nausea, abdominal pain, and hematochezia in the setting of likely Crohn's flare requiring bowel rest, IVF, IV analgesics, IV antiemetics, and IV steroids along with specialist consultation with Gastroenterology. Quality Stroke Does the patient have a stroke diagnosis?: No VTE Prior VTE?: No VTE Risk Level:: Medical - moderate - high VTE Device Contraindication: N/A - Device Ordered VTE Drug Contraindication: Treatment Not Indicated
[2024-05-15] MEDS: Lactated Ringers 1,000 ML 999 ML IV (20:28)
[2024-05-15] MEDS: Morphine Sulfate 4 MG/ML CARTRIDGE IVPUSH (21:06)
[2024-05-15] MEDS: methylPREDNISolone Sod Succ 40 MG/ML VIAL 20 MG IVPUSH (21:37)
[2024-05-15] MEDS: Lactated Ringers 1,000 ML 100 ML IVCONT (21:47)
[2024-05-15 21:53] LABS: C Reactive Protein 0.36 mg/dL (< or = 0.50)
[2024-05-15 22:19] LABS: Erythrocyte Sedimentation Rate 28 MM/HR (0-20)
[2024-05-15 22:32] VITALS: BP 137/89; PULSE 68; RESP 18; TEMP 36.2; O2SAT 95
[2024-05-16 03:24] VITALS: BP 104/67; PULSE 67; RESP 16; TEMP 36; O2SAT 95
[2024-05-16] MEDS: methylPREDNISolone Sod Succ 40 MG/ML VIAL 20 MG IVPUSH ×4 (03:27→20:13)
[2024-05-16 06:42] LABS: MANUAL DIFF FLAG NO
[2024-05-16 06:52] LABS: Imm Gran Abs Auto 0.01 X10*3/uL (0.00-0.03); Imm Gran Pct Auto 0.1 % (0.0-0.4); Lymphocytes Absolute Auto 0.8 X10*3/uL (1.2-4.9); Lymphocytes Percent Auto 11.4 % (20-40); Mean Corpuscular HGB Conc 34.2 g/dl (31.0-35.0); Mean Corpuscular Hemoglobin 35.4 pg (27.0-33.0); Mean Corpuscular Volume 103.5 fL (80.0-98.0); Mean Platelet Volume 9.9 fL (9.4-12.3); Monocytes Absolute Auto 0.1 X10*3/uL (0.1-1.2); Monocytes Percent Auto 0.8 % (2-11); Neutrophils Absolute Auto 6.5 x10*3/uL (2.0-8.3); Neutrophils Percent Auto 87.7 % (45-73); Platelet Count 374 X10*3/uL (160-400); Red Blood Count 3.67 X10*6/uL (4.20-5.50); Red Cell Distribution Width 12.8 % (11.0-16.0); White Blood Count 7.4 X10*3/uL (4.8-10.8)
[2024-05-16 06:56] LABS: Appearance Urine Clear; Color Urine Straw; Glucose Urine UA Negative (Negative); Leukocyte Esterase Urine Negative (Negative); Nitrite Urine Negative (Negative); UMIC TRIGGER UACC YES; Urine Blood Trace (Negative); Urine Ketones Negative (Negative); Urine Protein Negative (Neg-Trace)
[2024-05-16 07:00] LABS: Anion Gap 14 (12-20); Blood Urea Nitrogen 10 mg/dL (9-16); Calcium 9.7 mg/dL (8.4-10.2); Carbon Dioxide 25 mmol/L (22-29); Chloride 105 mmol/L (96-108); Creatinine Clr Calc Pharmacy 82.8; Estimated Glomerular Filt Rate > 60; Glucose Random 184 mg/dL (60-115); Potassium 3.9 mmol/L (3.3-5.1); Sodium 140 mmol/L (135-145)
[2024-05-16 07:02] LABS: Bacteria Urine None Seen (None Seen); Hyaline Casts Urine 0-2 /LPF (0-2); RBC Urine 0-2 /HPF (0-2); Squamous Epithelial Cell Urine 0-2 /HPF (0-2); WBC Urine 0-5 /HPF (0-5)
[2024-05-16 07:13] VITALS: BP 125/77; PULSE 66; RESP 19; TEMP 36.1; O2SAT 97
[2024-05-16] MEDS: Lactated Ringers 1,000 ML 100 ML IVCONT ×2 (08:17→18:19)
[2024-05-16] MEDS: 0.9 % Sodium Chloride Flush 3 ML SYRINGE IVFLUSH (08:17)
--- NOTE | 2024-05-16 09:15 | PHA.MEDREC ---
Addendum entered by Jesu Martinez RPh 05/16/24 09:52: MED REC CHECKED BY [facility] Original Note: Pharmacy Consult ? Medication Reconciliation Pharmacy has completed the medication reconciliation. Spoke with patient and she confirmed her medications. She confirmed she is still taking the Calcium-Vitamin D3 combo medication when needed and stated she started it after a surgery she had in the last year and stated she noticed she gets numbness or tingling sometimes in her hands and feet and when she takes one of those tablets it seems to help her. She also confirmed she has been taking Prilosec 20mg tabs OTC for a bit now for the heartburn. She confirmed she took all her medications yesterday morning.
--- NOTE | 2024-05-16 09:15 | MHC.CM.PN ---
Pt lives with her family, she is independent, no home health services or DME. HCP discussed, she declined to complete form. PCP confirmed: Lorraine Almaguer. Family to transport home at DC. DCP: home, self care. CM to follow for DC needs.
[2024-05-16] MEDS: Omeprazole 20 MG CAPSULE.DR PO (11:01)
[2024-05-16] MEDS: Hydroxyurea 500 MG CAPSULE 1000 MG PO (11:01)
[2024-05-16 11:04] VITALS: BP 145/76; PULSE 68; RESP 17; TEMP 36.2; O2SAT 97
--- NOTE | 2024-05-16 11:06 | HO.PM.IMPN ---
Subjective Subjective Date of Service: 05/16/24 Interval History: seen and examined reports improved abd pain no further diarrhea or bleeding pt hoping for discharge home Review of Systems Negative except HPI/interval history. Physical Exam Vital Signs: Vital Signs: Last Vital Signs Temp 97.1 F 05/16/24 11:04 Pulse 68 05/16/24 11:04 Resp 17 05/16/24 11:04 BP 145/76 H 05/16/24 11:04 Pulse Ox 97 05/16/24 11:04 O2 Del Method Room Air 05/16/24 11:04 BMI result Body Mass Index 30.1 Const: Other: General - no acute distress, appears comfortable Cardiovascular - regular rate and rhythm, S1-S2 Lungs - normal respiratory effort, clear to auscultation bilaterally, no wheezing Abdomen - soft, nontender, no rebound or guarding Extremities - no edema bilaterally Neuro - awake and alert, no focal deficits Objective Data Active Medications Acetaminophen (Acetaminophen 325 Mg Tablet) 650 mg PO Q6H PRN PRN Reason: Pain, Mild (Pain Scale 1-3), fever or headache Atorvastatin Calcium (Atorvastatin Calcium 40 Mg Tablet) 40 mg PO BEDTIME [facility] Calcium Carbonate (Calcium Carbonate 750 Mg Tab.Chew) 750 mg PO Q4H PRN PRN Reason: Heartburn Hydroxyurea (Hydroxyurea 500 Mg Capsule) 1,000 mg PO DAILY [facility] Last Admin: 05/16/24 11:01 Dose: 1,000 mg Documented By: ROB Lactated Ringer's (Lr) 1,000 mls @ 100 mls/hr IVCONT .Q10H [facility] Last Admin: 05/16/24 08:17 Dose: 100 mls/hr Documented By: ROB Magnesium Hydroxide (Milk Of Magnesia 30 Ml Oral.Susp) 30 ml PO DAILY PRN PRN Reason: Constipation Melatonin (Melatonin 3 Mg Tablet) 6 mg PO BEDTIME PRN PRN Reason: Insomnia Methylprednisolone Sodium Succinate (Methylprednisolone Sod Succ 40 Mg/Ml Vial) 20 mg IVPUSH Q6H [facility] Last Admin: 05/16/24 08:18 Dose: 20 mg Documented By: ROB Morphine Sulfate (Morphine Sulfate 4 Mg/Ml Cartridge) 4 mg IVPUSH Q4H PRN; Protocol PRN Reason: Pain, Severe (Pain Scale 7-10) Last Admin: 05/15/24 21:06 Dose: 4 mg Documented By: WISAM Omeprazole (Omeprazole 20 Mg Capsule.) 20 mg PO DAILY@06 [facility] Last Admin: 05/16/24 11:01 Dose: 20 mg Documented By: ROB Ondansetron HCl (Ondansetron Hcl 4 Mg/2 Ml Vial) 4 mg IVPUSH Q8H PRN PRN Reason: Nausea and Vomiting Sodium Chloride (0.9 % Sodium Chloride Flush 3 Ml Syringe) 3 ml IVFLUSH QSHIFT [facility] Last Admin: 05/16/24 08:17 Dose: 3 ml Documented By: ROB Labs 05/16/24 06:23 05/16/24 06:23 Labs: Laboratory Results - last 24 hr 05/15/24 05/15/24 05/15/24 16:06 17:19 18:45 MCV 103.1 H 103.0 H MCH 36.2 H 35.9 H MCHC 35.1 H 34.8 RDW 13.0 13.2 Plt Count 393 384 MPV 9.7 9.9 Immature Gran % (Auto) 0.4 0.3 Neut % (Auto) 83.4 H 77.5 H Lymph % (Auto) 11.2 L 17.2 L Stephens % (Auto) 4.7 4.8 Eos % (Auto) 0.1 0.0 Baso % (Auto) 0.2 0.2 Lymph # (Auto) 1.3 1.6 Stephens # (Auto) 0.6 0.4 Eos # (Auto) 0.0 0.0 Baso # (Auto) 0.0 0.0 Abs Immat Gran (auto) 0.05 H 0.03 Absolute Neuts (auto) 9.9 H 7.1 Absolute Nucleated RBC 0.000 0.000 Nucleated RBC % (auto) 0.0 0.0 ESR 28 H PT 12.2 INR 1.0 Anion Gap 17 Estim Creat Clear Calc 70.0 Estimated GFR > 60 Random Glucose 129 H Calcium 9.9 Magnesium 1.9 Total Bilirubin 0.6 AST 25 ALT 25 Alkaline Phosphatase 75 C-Reactive Protein 0.36 Total Protein 8.1 H Albumin 4.7 Lipase 27 Urine Color Urine Appearance Urine pH Ur Specific [place] Urine Protein Urine Glucose (UA) Urine Ketones Urine Blood Urine Nitrite Ur Leukocyte Esterase Urine RBC Urine WBC Ur Squamous Epith Cells Urine Bacteria Hyaline Casts Stool Occult Blood NEGATIVE 05/16/24 05/16/24 06:23 06:42 MCV 103.5 H MCH 35.4 H MCHC 34.2 RDW 12.8 Plt Count 374 MPV 9.9 Immature Gran % (Auto) 0.1 Neut % (Auto) 87.7 H Lymph % (Auto) 11.4 L Stephens % (Auto) 0.8 L Eos % (Auto) 0.0 Baso % (Auto) 0.0 Lymph # (Auto) 0.8 L Stephens # (Auto) 0.1 Eos # (Auto) 0.0 Baso # (Auto) 0.0 Abs Immat Gran (auto) 0.01 Absolute Neuts (auto) 6.5 Absolute Nucleated RBC 0.000 Nucleated RBC % (auto) 0.0 ESR PT INR Anion Gap 14 Estim Creat Clear Calc 82.8 Estimated GFR > 60 Random Glucose 184 H Calcium 9.7 Magnesium Total Bilirubin AST ALT Alkaline Phosphatase C-Reactive Protein Total Protein Albumin Lipase Urine Color Straw Urine Appearance Clear Urine pH 6.0 Ur Specific [place] 1.010 Urine Protein Negative Urine Glucose (UA) Negative Urine Ketones Negative Urine Blood Trace Urine Nitrite Negative Ur Leukocyte Esterase Negative Urine RBC 0-2 Urine WBC 0-5 Ur Squamous Epith Cells 0-2 Urine Bacteria None Seen Hyaline Casts 0-2 Stool Occult Blood Assessment and Plan (1) Crohn's colitis: Status: Acute Plan Pt is a 58-year-old female with a PMH significant for?CAD, STEMI in 2019 s/p stenting, Crohn's disease, hyperparathyroidism s/p partial parathyroidectomy, and 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 Pt will be admitted to the hospital for treatment and further evaluation of intractable nausea, abdominal pain, and hematochezia in the setting of Crohn's flare. Question Acute Crohn's flare The patient with lower abdominal pain, nausea, hematochezia CT showing likely inflammatory colitis Stool was negative for occult blood though provider noted blood on digital rectal exam. IVF, IV steroids, GI eval - question if empiric abx of benefit clear liquids no further episodes of hematochezia CVA/CAD statin, hold asa today Myelofibrosis Continue hydroxyurea Full Code DVT Prophylaxis: Compression due to hematochezia reason for on going hospitalization -- crohns' flare requiring iv steroids + GI evaluation Quality Stroke Does the patient have a stroke diagnosis?: No VTE Prior VTE?: No VTE Risk Level:: Medical - moderate - high VTE Device Contraindication: N/A - Device Ordered VTE Drug Contraindication: Treatment Not Indicated
--- NOTE | 2024-05-16 12:28 | CONS_ITS ---
DATE OF SERVICE: 05/16/2024 REFERRING PHYSICIAN: Dr. Jung REASON FOR CONSULTATION: Blood in the stool and history of colitis. HISTORY OF THE PRESENT ILLNESS: The patient is a pleasant 58-year-old woman, who was admitted to the hospital after presenting to the emergency department yesterday with a 2 to 3-week history of abdominal pain and bloody diarrhea. She denies any associated fevers or chills. She denies any ill contacts or suspect food ingestions. She was evaluated in the emergency department with laboratory studies which documented a stable hematocrit. Stool occult blood testing was negative. Rectal examination, however, was reported as showing a small amount of blood on digital rectal examination. She reports a history of Crohn disease diagnosed at another hospital, but was told after her last colonoscopy that this did not appear to be active. Review of her colonoscopy which was done on July 17, 2021 showed erythematous mucosa in the distal rectum which was biopsied. Internal hemorrhoids were noted. Biopsies were obtained from the remainder of the colon. Biopsy results are not available but will be obtained. Imaging done in the emergency department showed a featureless appearance of the rectosigmoid with minimal pericolonic stranding, possibly reflective of early colitis. Stool specimens have been ordered but not obtained. She is currently being treated with Solu-Medrol. PAST MEDICAL HISTORY: 1. Coronary artery disease with history of MN and stent placement. 2. Hyperparathyroidism with partial parathyroidectomy. 3. Crohn disease as above. 4. Myelofibrosis. 5. Vitamin D deficiency. 6. Gastroesophageal reflux disease. 7. Thrombocytosis. CURRENT MEDICATIONS: Her current medication list is reviewed in the chart. ALLERGIES: TETRACYCLINES. FAMILY HISTORY: This is reviewed with the patient and is noncontributory. SOCIAL HISTORY: There is no current tobacco, alcohol, or substance abuse. REVIEW OF SYSTEMS: SKIN: No pruritus. HEENT: Negative. CARDIOPULMONARY: No shortness of breath or chest pain. GASTROINTESTINAL: As above. GENITOURINARY: Negative. NEUROPSYCHIATRIC: Negative. PHYSICAL EXAMINATION: GENERAL: Shows a pleasant female, lying comfortably in bed. VITAL SIGNS: Reviewed in the electronic medical record and are stable. SKIN: Anicteric. HEENT: Shows no scleral icterus. NECK: Without lymphadenopathy or thyromegaly. LUNGS: Clear. HEART: Shows regular rate and rhythm. S1, S2. No murmur. ABDOMEN: Soft without focal masses or tenderness. Bowel sounds are present. No organomegaly is noted. EXTREMITIES: Without edema. LABORATORY DATA: Reviewed. IMPRESSION: Abdominal pain with rectal bleeding. This could represent an exacerbation of her prior history of Crohn's colitis, although her last colonoscopy reportedly showed no active inflammatory bowel disease. Biopsies will be reviewed. At this time, I agree with treating her with a gradual increase in her diet and IV steroids. This can be switched over to oral prednisone i.e. 40 mg daily with tapering by 10 mg weekly and she can follow up with her primary health and safety specialist. Stool specimens have been ordered and are pending. Thanks for asking me to see her. I will follow her in the hospital with you. MD SARAY Camara/NICK / [phone]
[2024-05-16 15:06] VITALS: BP 141/91; PULSE 73; RESP 18; TEMP 36.2; O2SAT 97
[2024-05-16] MEDS: Acetaminophen 325 MG TABLET 650 MG PO (15:16)
[2024-05-16] MEDS: Sodium Chloride 0.65 % Nasal 44 ML SPRBTL 1 SPRAY NOSTRIL-B (16:41)
[2024-05-16] MEDS: ondansetron HCL 4 MG/2 ML VIAL IVPUSH (16:44)
[2024-05-16 20:00] VITALS: BP 146/77; PULSE 79; RESP 20; TEMP 36.5; O2SAT 97
[2024-05-16] MEDS: Atorvastatin Calcium 40 MG TABLET PO (20:12)
[2024-05-16 23:52] VITALS: BP 139/65; PULSE 77; RESP 18; TEMP 36.4; O2SAT 96
[2024-05-17] MEDS: Lactated Ringers 1,000 ML 100 ML IVCONT (03:24)
[2024-05-17] MEDS: methylPREDNISolone Sod Succ 40 MG/ML VIAL 20 MG IVPUSH ×2 (03:24→07:50)
[2024-05-17 04:00] VITALS: BP 128/69; PULSE 75; RESP 18; TEMP 36.1; O2SAT 97
[2024-05-17] MEDS: Omeprazole 20 MG CAPSULE.DR PO (06:23)
[2024-05-17 07:03] VITALS: BP 139/72; PULSE 65; RESP 18; TEMP 36.2; O2SAT 98
[2024-05-17] MEDS: Hydroxyurea 500 MG CAPSULE 1000 MG PO (07:50)
[2024-05-17 10:08] LABS: CDiff Gene PCR NEGATIVE (Negative)
[2024-05-17 10:58] VITALS: BP 152/70; PULSE 74; RESP 18; TEMP 36.6; O2SAT 99
--- NOTE | 2024-05-17 11:01 | HO.PM.IMPN ---
Subjective Subjective Date of Service: 05/17/24 Interval History: seen and examined this AM tolerated full liquids last night and plan for was solids with breakfast and possible d/c if that went well per RN -- pt had some stool with blood in it pt with on going abd pain relieved by flatus Review of Systems Negative except HPI/interval history. Physical Exam Vital Signs: Vital Signs: Last Vital Signs Temp 97.2 F 05/17/24 07:03 Pulse 65 05/17/24 07:03 Resp 18 05/17/24 07:03 BP 139/72 05/17/24 07:03 Pulse Ox 98 05/17/24 07:03 O2 Del Method Room Air 05/17/24 07:03 BMI result Body Mass Index 30.1 Const: Other: General - no acute distress, appears comfortable Cardiovascular - regular rate and rhythm, S1-S2 Lungs - normal respiratory effort, clear to auscultation bilaterally, no wheezing Abdomen - mild lower quad ttp without rebound Extremities - no edema bilaterally Neuro - awake and alert, no focal deficits Objective Data Active Medications Acetaminophen (Acetaminophen 325 Mg Tablet) 650 mg PO Q6H PRN PRN Reason: Pain, Mild (Pain Scale 1-3), fever or headache Last Admin: 05/16/24 15:16 Dose: 650 mg Documented By: ROB Atorvastatin Calcium (Atorvastatin Calcium 40 Mg Tablet) 40 mg PO BEDTIME [facility] Last Admin: 05/16/24 20:12 Dose: 40 mg Documented By: RON Calcium Carbonate (Calcium Carbonate 750 Mg Tab.Chew) 750 mg PO Q4H PRN PRN Reason: Heartburn Hydroxyurea (Hydroxyurea 500 Mg Capsule) 1,000 mg PO DAILY [facility] Last Admin: 05/17/24 07:50 Dose: 1,000 mg Documented By: FACUNDO Lactated Ringer's (Lr) 1,000 mls @ 100 mls/hr IVCONT .Q10H [facility] Last Admin: 05/17/24 03:24 Dose: 100 mls/hr Documented By: RON Magnesium Hydroxide (Milk Of Magnesia 30 Ml Oral.Susp) 30 ml PO DAILY PRN PRN Reason: Constipation Melatonin (Melatonin 3 Mg Tablet) 6 mg PO BEDTIME PRN PRN Reason: Insomnia Methylprednisolone Sodium Succinate (Methylprednisolone Sod Succ 40 Mg/Ml Vial) 20 mg IVPUSH Q6H [facility] Last Admin: 05/17/24 07:50 Dose: 20 mg Documented By: FACUNDO Morphine Sulfate (Morphine Sulfate 4 Mg/Ml Cartridge) 4 mg IVPUSH Q4H PRN; Protocol PRN Reason: Pain, Severe (Pain Scale 7-10) Last Admin: 05/15/24 21:06 Dose: 4 mg Documented By: WISAM Omeprazole (Omeprazole 20 Mg Capsule.Dr) 20 mg PO DAILY@0630 [facility] Last Admin: 05/17/24 06:23 Dose: 20 mg Documented By: RON Ondansetron HCl (Ondansetron Hcl 4 Mg/2 Ml Vial) 4 mg IVPUSH Q8H PRN PRN Reason: Nausea and Vomiting Last Admin: 05/16/24 16:44 Dose: 4 mg Documented By: ROB Sodium Chloride (0.9 % Sodium Chloride Flush 3 Ml Syringe) 3 ml IVFLUSH QSHIFT [facility] Last Admin: 05/17/24 07:53 Dose: Not Given Documented By: FACUNDO Non-Admin Reason: IV Running Sodium Chloride (Sodium Chloride 0.65 % Nasal 44 Ml Sprbtl) 1 spray NOSTRIL-B Q1H PRN PRN Reason: Nasal Congestion Last Admin: 05/16/24 16:41 Dose: 1 spray Documented By: ROB Labs 05/16/24 06:23 05/16/24 06:23 Labs: Laboratory Results - last 24 hr 05/17/24 08:55 C. 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 Pt will be admitted to the hospital for treatment and further evaluation of intractable nausea, abdominal pain, and hematochezia in the setting of Crohn's flare. Acute Crohn's flare The patient with lower abdominal pain, nausea, hematochezia hematochenzia had resolved since admit, but this AM with recurrence after solids will deescalate to full liquids stool studies sent this AM (no BM since admit) check H/H continue steroids and possible abx pending stool studies pt unlikely able to be discharged today CVA/CAD statin, hold asa today Myelofibrosis Continue hydroxyurea Full Code DVT Prophylaxis: Compression due to hematochezia reason for on going hospitalization -- crohns' flare requiring iv steroids + lower gi bleed after advancement of diet Quality Stroke Does the patient have a stroke diagnosis?: No VTE Prior VTE?: No VTE Risk Level:: Medical - moderate - high VTE Device Contraindication: N/A - Device Ordered VTE Drug Contraindication: Treatment Not Indicated
[2024-05-17 11:16] LABS: Leukocytes Stool Qualitative NEGATIVE (NEGATIVE)
[2024-05-17 11:24] LABS: Hematocrit 40.8 % (37.0-47.0); Mean Corpuscular HGB Conc 34.3 g/dl (31.0-35.0); Mean Corpuscular Hemoglobin 35.7 pg (27.0-33.0); Mean Corpuscular Volume 104.1 fL (80.0-98.0); Mean Platelet Volume 9.9 fL (9.4-12.3); Platelet Count 530 X10*3/uL (160-400); Red Blood Count 3.92 X10*6/uL (4.20-5.50); Red Cell Distribution Width 13.4 % (11.0-16.0); White Blood Count 17.3 X10*3/uL (4.8-10.8)
[2024-05-17 11:40] LABS: Adenovirus F 40/41 Not Detected (Not Detect.); Astrovirus Not Detected (Not Detect.); Campylobacter Not Detected (Not Detect.); Cryptosporidium Not Detected (Not Detect.); Cyclospora cayetanensis Not Detected (Not Detect.); E. coli EAEC Not Detected (Not Detect.); E. coli EPEC Not Detected (Not Detect.); E. coli ETEC Not Detected (Not Detect.); E. coli STEC Not Detected (Not Detect.); Entamoeba histolytica Not Detected (Not Detect.); Giardia lamblia Not Detected (Not Detect.); Norovirus GI/GII Not Detected (Not Detect.); Plesiomonas shigelloides Not Detected (Not Detect.); Rotavirus A Not Detected (Not Detect.); Salmonella Not Detected (Not Detect.); Sapovirus Not Detected (Not Detect.); Shigella sp./EIEC Not Detected (Not Detect.); Vibrio Not Detected (Not Detect.); Vibrio Cholerae Not Detected (Not Detect.); Yersinia enterocolitica Not Detected (Not Detect.)
--- NOTE | 2024-05-17 12:18 | PM.DS ---
DS: Providers Provider Date of Service: 05/17/24 Date of admission: 05/15/24 19:54 Date of discharge: 05/17/24 Primary care physician: Lorraine Almaguer MD Consults: 05/15/24 19:54 Consult to Gastroenterology Routine Consulting Provider: Conor Rueda Reason for consultation: blood in stool, colitis Attending physician on discharge: Rai Godoy DS: Diagnosis Discharge Diagnosis (1) Crohn's colitis: Status: Acute (2) BRBPR (bright red blood per rectum): Status: Acute (3) Coronary artery disease: Status: Acute (4) Primary myelofibrosis: Status: Acute DS: Summary Hospital Course Hospital Course: From the admission H&P : Pt is a 58-year-old female with a PMH significant for?CAD, STEMI in 2019 s/p stenting, Crohn's disease, hyperparathyroidism s/p partial parathyroidectomy, and 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 Patient reports symptoms began a few weeks ago with intermittent mostly lower abdominal pain. Patient's bowel movements also became irregular and with less volume. Last week noticed some of the stools appeared dark and possibly containing blood, but it was not until today when patient began experiencing 6-7 episodes of diarrhea that soon became all blood . Today also experienced diaphoresis, nausea but no vomiting, and numbness and tingling in upper extremities. Patient reports a long history of Crohn's disease with at least 3 prior hospitalizations. Last flare in November of 2023. Denies chest pain/pressure, palpitations. No shortness a breath or difficulty breathing. In the ED pt was hypertensive up to 173/91, otherwise vitals stable and WNL. Labs were grossly unremarkable. Stable H&H of 13.9/39.6 with repeat 3 hours later 13.2/37.9. No significant leukocytosis. No significant electrolyte abnormalities. Renal and hepatic function baseline. Stool was negative for occult blood though provider noted blood on digital rectal exam. CT of abdomen and pelvis showing possible early colitis suggesting inflammatory with infectious or ischemic less likely. Also showed hepatomegaly and hepatic steatosis. Pt will be admitted to the hospital for treatment and further evaluation of intractable nausea, abdominal pain, and hematochezia in the setting of Crohn's flare. Hospital Course: The patient was started on IV steroids as well as intravenous fluid for her suspected acute Crohn's flare. She was evaluated by Gastroenterology and the recommendation was for IV steroids with a taper to oral prednisone 40 mg daily, tapering by 10 mg each week. Over the course of the patient's 1st 2 days in the hospital, she had no further hematochezia, in fact she had no further bowel movements. She was tolerating full liquid diets and was advanced to solids. Prior to starting solids, the patient had a bowel movement with blood streak stools. She reported noticing stools while wiping as well. This is likely attributable to her known hemorrhoids. She was largely pain-free and was tolerating a diet. Her H and H was checked and in fact was improved from previous values. Her stool studies are negative for an infectious etiology. Ova and parasite is pending and can be followed up as an outpatient. Ideally, the patient would have remained hospitalized for an additional 24 hours to ensure no further hematochezia, however at the patient's insistence for discharge home and her relative improvement and stability, a co-decision was made with the patient for discharge home. She has been thoroughly explained the signs and symptoms of worsening anemia which she has been able to report back. She is given clear instructions on returning to the ED should she have any worsening or new symptoms. Time Attestation Discharge Coordination Time (in mins): 35 Quality: Safe Use of Opioids Does Pt have an Active Cancer Diagnosis on the Problem List?: No Quality: Stroke Does the patient have a stroke diagnosis?: No Physical Exam Vital Signs: Vital Signs: Last Vital Signs Temp 97.9 F 05/17/24 10:58 Pulse 74 05/17/24 10:58 Resp 18 05/17/24 10:58 BP 152/70 H 05/17/24 10:58 Pulse Ox 99 05/17/24 10:58 O2 Del Method Room Air 05/17/24 10:58 BMI result Body Mass Index 30.1 Const: Other: General - no acute distress, appears comfortable Cardiovascular - regular rate and rhythm, S1-S2 Lungs - normal respiratory effort, clear to auscultation bilaterally, no wheezing Abdomen - soft, nontender, no rebound or guarding Extremities - no edema bilaterally Neuro - awake and alert, no focal deficits DS: Data Data Completed and Pending Labs on day of discharge: Laboratory Results - last 24 hr 05/17/24 05/17/24 08:55 11:10 WBC 17.3 H RBC 3.92 L Hgb 14.0 Hct 40.8 MCV 104.1 H MCH 35.7 H MCHC 34.3 RDW 13.4 Plt Count 530 H D MPV 9.9 Absolute Nucleated RBC 0.000 Nucleated RBC % (auto) 0.0 Stool Leukocytes, Qual NEGATIVE Stl C. cayetanensis PCR Not Detected Stool Rotavirus A PCR Not Detected Stl Adenov F 40/41 PCR Not Detected Stool Astrovirus (PCR) Not Detected Stool Campylobacter PCR Not Detected Stool Cryptosporidium PCR Not Detected Stl Sh Tox Pr E STEC PCR Not Detected Stool E coli O157 PCR Not applicable Stl Enterotoxigenic E PCR Not Detected Stool EPEC (PCR) Not Detected Stool EAEC (PCR) Not Detected Stl E. histolytica PCR Not Detected Stool Giardia Lamblia PCR Not Detected Stl P. shigelloides PCR Not Detected Stool Salmonella PCR Not Detected Stool Sapovirus (PCR) Not Detected Stl Shigella/EIEC PCR Not Detected St Y.enterocolitica PCR Not Detected Stool Vibrio (PCR) Not Detected Stl Vibrio cholerae PCR Not Detected Stl Norovirus GI/GII PCR Not Detected C. difficile Tox B Gene NEGATIVE Discharge Plan Discharge Anticipated Discharge Date/Time: 05/17/24 12:11 Patient Disposition: Home, Self-Care Discharge Diagnosis: Acute Crohn's Colitis Referrals: Lorraine Almaguer MD [Primary Care Provider] - 1 Week Discharge Medications: New prednisone 10 mg tablet See Taper PO DAILY Qty: 70 0RF Taper: Prednisone 40 mg daily for 3 Days and 0 Hour 30 mg daily for 7 Days and 0 Hour 20 mg daily for 7 Days and 0 Hour 10 mg daily for 7 Days and 0 Hour Continued omeprazole 20 mg Capsule,Delayed Release(Dr/Ec) 20 mg PO DAILY@0630 hydroxyurea 500 mg capsule 1,000 mg PO DAILY atorvastatin 40 mg tablet 40 mg PO BEDTIME Citracal Plus Bone Density 300-200-13.5 mg-unit-mg tablet 1 tab PO DAILY PRN (Reason: Tingling/Numbness) Held aspirin 81 mg tablet,delayed release (DR/EC) 81 mg PO DAILY Hold Instructions: Resume on 05/24/24. can resume in 1 week if no further bleeding, d/w your pcp prior to starting Discharge Orders: Discharge Order (Routine); Ordered 05/17/24 Ordered By: Rai Godoy Diet: Advance to usual diet Activity on Discharge: As tolerated Stand Alone Forms: Patient Portal Discharge page Print Language: Citizen Of [place] Care Plan Goals: To stay healthy and out of the hospital. Health Concerns: Crohn's flare up Rectal bleeding Plan of Treatment: Take prednisone as prescribed: Start with 40mg daily for 7 days, then 30mg daily for 7 days, then 20mg daily for 7 days, then 10mg daily for 7 days follow up with your GI doctors -- you can call Dr. Rueda's clinic if you want to follow up with him hold your aspirin for 1 week and discuss with your doctors if it okay to restart monitor for signs of anemia such as fatigue, lightheadedness, palpitations, low BP, dizziness return to the ED with any concerns Assessment: see discharge summary Discharge Date/Time: 05/17/24 13:30
== END 2024-05-17 13:30 | disposition home or self-care (01) | DRG 386 ==
LOC: HO.ED 17:03 → HO.EDOVER 20:10 → HO.IMC 21:20
PROVIDERS: Internal Medicine Gastroenterology; Physician Assistant; Registered Nurse Emergency; Student in an Organized Health Care Education/Training Program; Admitting Provider Student in an Organized Health Care Education/Training Program; Emergency Provider Emergency Medicine Emergency Medical Services; PCP Internal Medicine; Visit Provider Family Medicine
DX: K50.911 Crohn's disease, unspecified, with rectal bleeding (principal); D47.1 Chronic myeloproliferative disease; I25.10 Atherosclerotic heart disease of native coronary artery without angina pectoris; Z95.5 Presence of coronary angioplasty implant and graft; I25.2 Old myocardial infarction; Z87.891 Personal history of nicotine dependence; Z86.73 Personal history of transient ischemic attack (TIA), and cerebral infarction without residual deficits; Z79.82 Long term (current) use of aspirin; Z79.899 Other long term (current) drug therapy
CPT/HCPCS: 36415; 74177; 80048; 80053; 81001; 82272; 83690; 83735; 85025; 85027; 85610; 85652; 86140; 87177; 87209; 87493; 87507; 89055; 99285; J2270; J2405; J2919; J7120; Q9967

== ENCOUNTER → 2024-05-15 19:54 | Outpatient (BNV) | payer OTHER, SELFPAY | PROVIDERS: Admitting Provider Student in an Organized Health Care Education/Training Program; Emergency Provider Emergency Medicine Emergency Medical Services; PCP Internal Medicine; Visit Provider Student in an Organized Health Care Education/Training Program | DX: K50.10 Crohn's disease of large intestine without complications (principal); K62.5 Hemorrhage of anus and rectum; I25.10 Atherosclerotic heart disease of native coronary artery without angina pectoris; D47.1 Chronic myeloproliferative disease | CPT/HCPCS: 99222; 99232; 99239; 99499 ==

== ENCOUNTER 2024-05-26 09:00 | Outpatient (AMB) | payer OTHER, SELFPAY ==
--- OUTSIDE RECORDS SUMMARY | 2024-05-26 09:03 | XMS_ITS | Patient Health Record ---
Author Organization [facility] Address [address] [place] [address] Care Team Providers Care Airplane Pilot Photogrammetry Name Role Phone Raúl Perkins Unavailable [phone] Reason For Referral No Information Encounters Encounter Location Date Provider Diagnosis [facility] [place] [address] 07/27/2023 Raúl Perkins Plan Of Treatment No Information Insurance Providers Payer Name Payer Address Payer Phone Subscriber Number Group Number Insured Name Patient Relationship to Insured Coverage Start Date Coverage End Date [employer] [id number] [address] [address] [place] [address] Ashley Hess Self - patient is the insured
--- OUTSIDE RECORDS SUMMARY | 2024-05-26 09:03 | XMS_ITS | Continuity of Care Document ---
Author Organization [facility]. If a dditional information is needed, contact Health Information Management at [phone] Address [address] [place] [address] Phone Care Team Providers Care Installer Interior Assemblies Name Role Phone Unavailable Unavailable Unavailable Unavailable [...] SULFATE = 8.12 MEQ OF MAGNESIUM SULFATE 1 ML ketorolac tromethamine 30 MG/ML Injection;Provider [...] PHENERGAN IS INEFFECTIVE INRELIEVING NAUSEA AND/OR VOMITING. LIDOCAINE HCL/PF 2% VIAL (10 0 MG/5 ML) Quantity:1 Oliver Dowell DO Start:06-Aug-2022 Status:Discontinued ceFAZolin 1000 MG Injection;Provider [...] vial over minimum 3 minutes3 GRAM/SWFI 30ML: KETAMINE HCL 50 MG/ML Syring e Quantity:1 [...] [Neurontin] Quantity:1 Michael Maza MD Start:06-Aug-2022 Status:Discontinued BIOTIN;DAILY Start:30-Jul-2022 Comments:DAILY atorvastatin 40 MG Oral Tabl et [Lipitor];40 MILLIGRAM PO DAILY Start:30-Jul-2022 Comments:40 MG PO DAILY aspirin 81 MG Delayed Releas e Oral Tablet;81 MILLIGRAM PO DAILY Start:30-Jul-2022 Comments:81 MG PO DAILY hydroxyurea 500 MG Oral Caps ule;500 MILLIGRAM PO DAILY Start:30-Jul-2022 Comments:500 MG PO DAILY omeprazole 20 MG Delayed Rel ease Oral Capsule;20 MILLIGRAM PO DAILY Start:30-Jul-2022 Comments:20 MG PO DAILY
--- OUTSIDE RECORDS SUMMARY | 2024-05-26 09:03 | XMS_ITS ---
Author Organization [facility] Address [address] [place] [address] [place] [address] Care Team Providers Care Team Leader/Research Psychologist Name Role Phone Raúl Perkins Unavailable [phone] REASON FOR VISIT ARCHITECT INTERNSHIP appt inf ing Encounters Encounter Location Date Provider Diagnosis [address] [place] [address] 07/27/2023 Raúl Perkins Plan Of Treatment No Information Progress Notes * Gary HESSOB:1965 (57 yo F)Acc No.[id number]:07/27/2023 Patient:?Ashley Hess :1965???Age:57 Y???Sex:Female Address[address] [place] [address] * true * Date:? Generated for Marty alva/Abiola/eTransmitting on:?05/26/2024 09:02 AM EST
--- OUTSIDE RECORDS SUMMARY | 2024-05-26 09:03 | XMS_ITS ---
Author Organization [facility] Address [address] [place] [address] [place] [address] Care Team Providers Care Control And Recovery [facility] Name Role Phone Raúl Perkins Unavailable [phone] Encounters Encounter Location Date Provider Diagnosis [facility] [address] [address] 07/29/2023 Raúl Perkins Plan Of Treatment No Information Progress Notes * Gary HESSOB:1965 (58 yo F)Acc No.[id number]:07/29/2023 Progress Notes Patient:?Ashley HESS Provider:?Raúl Perkins DPM :1965???Age:57 Y???Sex:Female D ate:07/29/2023 [address] Subjective: * Chief Complaints: * ??? * Medical History:? Objective: * Vitals:? Assessment: Plan: * Treatment: * Images: * The named appointment provid er may or may not be the originator of this progress note, and it is not deemed complete until electronically signed by the appointment provider. Sign off status: Pending * Provider:?Raúl Perkins DPM Date:?2023 Generated for Marty alva/Abiola/Tyleritting on:?05/26/2024 09:02 AM EST
[2024-05-26 09:11] VITALS: BP 112/86; PULSE 69; O2SAT 97; BMI 29.2
--- NOTE | 2024-05-26 09:11 | MHC.PC.OV ---
Vital Signs 05/26/24 09:11 Height 5 ft 3 in Weight 165 lb BMI 29.2 BP 112/86 Blood Pressure Location Rt brachial Position Sitting Pulse 69 Pulse Source Pulse Oximeter Pulse Oximetry (%) 97 Oxygen Delivery Method Room Air Intake Visit Reasons: HDF rectal bleeding Intake Note: Pt is here today HDF rectal bleeding Allergies tetracycline Adverse Reaction (Unknown, Verified 05/29/24 15:01) nausea Medication List - Last Reconciled 05/29/24 by Lorraine Almaguer MD aspirin 81 mg PO DAILY atorvastatin 40 mg PO BEDTIME calcium crb,sqx-H0-ivx14-genis 300 mg-200 unit -13.5 mg (Citracal Plus Bone Density Builder) 1 tab PO DAILY PRN hydroxyurea 1,000 mg PO DAILY omeprazole 20 mg PO DAILY@0630 prednisone See Taper mg PO DAILY Tobacco use date assessed: 05/26/24 Dental Screening Dental Screen Date: 05/26/24 Did you have a dental visit in the last 12 months?: Yes Did you have a dental problem in the last 6 months where you did not have access to dental care?: No Was dental information given to patient?: Patient has dentist HPI HDF rectal bleeding HPI Details 58-year-old female with history of CAD, STEMI in 2019 s/p cardiac stenting, Crohn's disease, hyperparathyroidism s/p parish all parathyroidectomy, and primary myelofibrosis currently on hydroxyurea who is here today for hospital follow-up. She was admitted 07/14/2023 complaining of lower abdominal pain accompanied by bloody diarrhea. CT of abdomen and pelvis showed evidence of possible colitis . And treated for Crohn's flare-up with IV steroids. Seen by GI who recommended continuing IV steroids with a taper to oral prednisone 40 mg daily tapering by 10 mg each week upon discharge patient's symptoms resolved, and discharge on 05/17/2024. Patient states that she has been feeling better, denies any further episodes of abdominal pain or bloody diarrhea. Still on tapering dose of prednisone. Has dense breasts noted on mammogram., mother has history of breast cancer [facility] Medical History (Updated 05/29/24 @ 16:47 by Lorraine Almaguer MD) Diabetes mellitus Crohn's colitis History of hyperparathyroidism Vitamin D deficiency Heartburn History of Crohn's disease History of non-ST elevation myocardial infarction (NSTEMI) Coronary artery disease Primary myelofibrosis Surgical History (Updated 05/29/24 @ 15:07 by Lorraine Almaguer MD) H/O parathyroidectomy History of bone marrow biopsy Hx of colonoscopy History of heart artery stent Family History (Updated 05/29/24 @ 15:08 by Lorraine Almaguer MD) Mother Breast cancer Social History Household Members: Spouse Housing: House Do you presently have visiting nurse or other home services: No Alcohol intake: current Alcohol intake frequency: holidays/special occasions only Patient Tobacco Use Status: Former Tobacco user Tobacco use type: Cigarette Years Smoked: 10 years e-Cigarette/Vaping Use: Never Used service: No Current occupational status: employed Cognitive needs: No Hearing needs: No Vision needs: Yes Questionnaire PHQ-9 Over the last 2 weeks, how often have you been bothered by any of the following problems? 1. Little interest or pleasure in doing things: not at all 2. Feeling down, depressed, or hopeless: not at all 3. Trouble falling or staying asleep, or sleeping too much: more than half the days 4. Feeling tired or having little energy: not at all 5. Poor appetite or overeating: not at all 6. Feeling bad about yourself - or that you are a failure or have let yourself or your family down: not at all 7. Trouble concentrating on things, such as reading the newspaper or watching television: not at all 8. Moving or speaking so slowly that other people could have noticed. Or the opposite - being so fidgety or restless that you have been moving around a lot more than usual: not at all 9. Thoughts that you would be better off or of hurting yourself in some way: not at all Total score: 2 Depression Screening Interpretation: Negative Depression Screening Done: Yes 08030 - PHQ-9 Billing: Yes Source: Developed by Drs. Eugene Jimenez, Sirisha Cruz, Александр Nieves and colleagues, with an educational jessi from [employer]. Thrive Questionnaire Date Thrive assessed: 05/26/24 I am a: Patient What is your living situation today?: I have a steady place to live Within the past 12 months, did the food you bought not last and you didn't have the money to get more?: Never true Within the past 12 months, did you worry whether your food would run out before you got money to buy more?: Never true Do you have trouble paying for medicines?: No Do you have trouble getting transportation to medical appointments?: No Do you have trouble paying your heating and electricity bill?: No Do you have trouble taking care of your child, family member or friend?: No Do you have trouble with day-to-day activities such as bathing, preparing meals, shopping, managing finances, etc.?: No Are you currently unemployed and looking for a job?: No Are you interested in more education?: No Please select the resources that you would like help with: None Currently or been in a relationship where the following occur: No concerns reported THRIVE Score: 0 AUDIT C Alcohol Use Questionnaire (AUDIT-C) 1. How often do you have a drink containing alcohol?: Monthly or less 2. How many drinks containing alcohol do you have on a typical day when you are drinking?: 1 or 2 3. How often do you have six or more drinks on one occasion?: Never Total Score: 1 JAY-7 AMB Questionnaire JAY-7 Date JAY - 7 assessed: 05/26/24 Feeling nervous, anxious, or on edge: 0 = Not at all Not being able to stop or control worryin = Not at all Worrying too much about different things: 0 = Not at all Trouble relaxin = Not at all Being so restless that it is hard to sit still: 0 = Not at all Becoming easily annoyed or irritable: 0 = Not at all Feeling afraid as if something awful might happen: 0 = Not at all Total JAY-7 score (0-4 normal; 5-9 mild; 10-14 moderate; 15-21 severe): 0 Source: Developed by Drs. Eugene Jimenez, Sirisha Cruz, Александр Nieves and colleagues, with an educational jessi from [employer]. JAY-7 Assessment Billing JAY-7 Assessment Tool: JYA-7 Assessment 74902 Review of Systems Const Denies body aches, Denies fatigue, Denies fever(s), Denies headache(s) and Denies weakness Eyes Denies change in vision ENT Denies dizziness and Denies headache(s) Card Denies chest pain, Denies lightheadedness, Denies palpitations and Denies dyspnea Resp Denies cough, Denies dyspnea and Denies wheezing GI Denies abdominal pain and Denies heartburn (Controlled with famotidine) Denies hematuria, Denies urinary frequency, Denies dysuria and Denies urinary urgency Musc Denies arthralgias and Denies stiffness Skin/Breast Denies rash Neuro Denies dizziness, Denies headache(s) and Denies weakness Psych Reports no additional complaints Endo Denies fatigue, Denies polydipsia, Denies polyuria and Denies palpitations Graham/Lymph Denies easy bruising Aller/Immun Denies seasonal rhinorrhea and Denies wheezing Physical exam (Primary Care) Vital Signs: Last Vital Signs Pulse 69 05/26/24 09:11 BP 112/86 05/26/24 09:11 Pulse Ox 97 05/26/24 09:11 Oxygen Delivery Method Room Air 05/26/24 09:11 BMI result Body Mass Index 29.2 Tobacco/Smoking Status: Tobacco use Status Tobacco use date assessed 05/26/24 05/26/24 09:15 Patient Tobacco Use Status Former Tobacco user 05/26/24 09:15 Tobacco use type Cigarette 05/26/24 09:15 e-Cigarette/Vaping Use Never Used 05/26/24 09:15 PHQ-9: PHQ-9 Score PHQ-9: Total score 2 05/29/24 15:12 Depression Screening Interpretation: Negative Thrive Assessment: Date of Thrive Assessment Date Thrive assessed 05/26/24 05/26/24 09:15 Currently or been in a relationship where the following occur: No concerns reported Const General: comfortable and no acute distress Orientation/consciousness: patient oriented x3 HENMT Ears: external ears normal and EAC's normal General nose exam: Normal external nose present Mouth: oropharynx normal and moist mucous membranes Eyes General: appearance normal, both eyes and all related structures Neck Neck: Yes full ROM, Yes no lymphadenopathy and Yes supple Chest Breast/axilla palpation: normal palpation of the breasts Resp Effort & Inspection: normal respiratory effort and able to speak in complete sentences Auscultation: clear to auscultation bilaterally Cardio Rate: regular rate Rhythm: regular rhythm Heart sounds: S1 normal heart sound present and S2 normal heart sound present GI Inspection: Yes normal to inspection Palpation (GI): Soft to palpation, nontender and no masses Auscultation: normal bowel sounds General: Yes no CVA tenderness Back/Spine/Pelvis Back: no CVA tenderness and No back tenderness Skin Other: Healed surgical scar on anterior neck Neuro General: patient oriented x3, gait normal, tone normal, moves all extremities, Normal light touch and pain sensation and no focal motor deficits Cognition (Neuro): normal cognition Gait exam (Neuro): Normal gait present Motor exam (neuro): 5/5 motor strength present throughout Extrem General: Yes full ROM, Yes no joint enlargement, Yes no clubbing, cyanosis or edema, Yes no pedal edema and Yes normal gait Results Reviewed Results Reviewed: Name: Ashley Hess Age/Sex: 58/F : 1965 Unit#: [id number] Attend Dr: Rai Godoy MD Re05/15/24 Status: DIS IN Location: [facility] 487-1 Disch: 05/17/24 SPEC : [id number] MARTA: 05/16/24 STATUS: COMP REQ : [id number] RECD: 05/16/[address]: Deysi Jung MD COMP: 05/16/24 ENTERED: 05/16/24 [facility] DR: Lorraine Almaguer MD ORDERED: BMP Test Result Flag Reference Sodium 140 135-145 mmol/L Potassium 3.9 3.3-5.1 mmol/L CL 105 96-108 mmol/L CO2 25 22-29 mmol/L Gap 14 12-20 BUN 10 9-16 mg/dL Creat 0.71 0.5-1.4 mg/dL Estimated CrCl 82.8 Provided height and weight: 160.02 cm, 77.111 kg. eGFR (calculated from the MDRD study equation) and eCrCl (calculated from the Cockcroft-Gault equation) are based on different parameters and may not yield comparable results. If eCrCl result is absurd, please check patient's height/weight. eGFR > 60 Chronic Kidney Disease: Estimated GFR < 60 mL/min/1.73m2 Severe Kidney Disease: Estimated GFR < 15 mL/min/1.73m2 Glucose, Random 184 H 60-115 mg/dL CA 9.7 8.4-10.2 mg/dL Laboratory Tests 04/18/24 06:58 Fasting Glucose 133 H Estimat Average Glucose 140 Hemoglobin A1c % 6.5 H Coding Level of Care Code Est Pt Level 4 (22919) Diagnoses Dense breast tissue on mammogram R92.30 Crohn's colitis K50.10 Family history of breast cancer in mother Z80.3 Diabetes mellitus E11.9 Additional Codes JAY-7 Assessment Billing - JAY-7 Assessment Tool: JAY-7 Assessment 17468 ([id number]) PHQ-9 - 36630 - PHQ-9 Billing: Yes ([id number]) Assessment & Plan Assessment & Plan (1) Dense breast tissue on mammogram: Code(s): R92.30 - Dense breasts, unspecified Category: Medical Plan: Bilateral breast ultrasound ordered (2) Crohn's colitis: Code(s): K50.10 - Crohn's disease of large intestine without complications Category: Medical Plan: Patient feels better, no complaints of abdominal pain, no nausea or blood in stool. Advised to finish prescription for prednisone, and follow-up with Dr. Mendes (3) Family history of breast cancer in mother: Code(s): Z80.3 - Family history of malignant neoplasm of breast Category: Medical Plan: Ordered bilateral breast ultrasound (4) Diabetes mellitus: Code(s): E11.9 - Type 2 diabetes mellitus without complications Category: Medical Plan: Last fasting glucose was elevated with a hemoglobin A1c at 6.5%. Will currently not on any medication at present time, referred to radio time salesperson for guidance with regards to diet. Recommended to do regular exercise. Will see her back for follow-up after repeat fasting labs done Orders: Orders US breast RT complete 05/26/24 R92.30 - Dense breasts, unspecified, Z80.3 - Family history of malignant neoplasm of breast US breast LT complete 05/26/24 R92.30 - Dense breasts, unspecified, Z80.3 - Family history of malignant neoplasm of breast Microalbumin, Random (w Creat) 06/25/24 E11.9 - Type 2 diabetes mellitus without complications, I25.10 - Atherosclerotic heart disease of [place] coronary artery without angina pectoris, K50.10 - Crohn's disease of large intestine without complications Lipid Panel 06/25/24 E11.9 - Type 2 diabetes mellitus without complications, I25.10 - Atherosclerotic heart disease of [place] coronary artery without angina pectoris, K50.10 - Crohn's disease of large intestine without complications Basic Metabolic Panel Fasting 06/25/24 E11.9 - Type 2 diabetes mellitus without complications, I25.10 - Atherosclerotic heart disease of [place] coronary artery without angina pectoris, K50.10 - Crohn's disease of large intestine without complications Alanine Aminotransferase 06/25/24 E11.9 - Type 2 diabetes mellitus without complications, I25.10 - Atherosclerotic heart disease of [place] coronary artery without angina pectoris, K50.10 - Crohn's disease of large intestine without complications Hemoglobin A1c 06/25/24 E11.9 - Type 2 diabetes mellitus without complications, I25.10 - Atherosclerotic heart disease of [place] coronary artery without angina pectoris, K50.10 - Crohn's disease of large intestine without complications Aspartate Amino Transferase 06/25/24 E11.9 - Type 2 diabetes mellitus without complications, I25.10 - Atherosclerotic heart disease of [place] coronary artery without angina pectoris, K50.10 - Crohn's disease of large intestine without complications
== END 2024-05-26 11:27 | disposition home or self-care (01) ==
PROVIDERS: PCP Internal Medicine; Visit Provider Internal Medicine
DX: R92.30 Dense breasts, unspecified (principal); K50.10 Crohn's disease of large intestine without complications; Z80.3 Family history of malignant neoplasm of breast; E11.9 Type 2 diabetes mellitus without complications

== ENCOUNTER → 2024-05-26 09:00 | Outpatient (BNVA) | payer OTHER, SELFPAY | PROVIDERS: PCP Internal Medicine; Visit Provider Internal Medicine | DX: K50.10 Crohn's disease of large intestine without complications (principal); R92.30 Dense breasts, unspecified; E11.9 Type 2 diabetes mellitus without complications; I25.10 Atherosclerotic heart disease of native coronary artery without angina pectoris; I25.2 Old myocardial infarction; Z80.3 Family history of malignant neoplasm of breast | CPT/HCPCS: 96127 ==

== ENCOUNTER 2024-06-25 07:24 | Outpatient (REF) | payer OTHER, SELFPAY ==
[2024-06-25 12:09] LABS: Estimated Average Glucose 154 mg/dL; Hemoglobin A1C 189.5798 umol/L; Total Hemoglobin (HGBA1C) 3552.8131 umol/L
[2024-06-25 12:14] LABS: Alanine Aminotransferase 20 U/L (0-31); Anion Gap 12 (12-20); Aspartate Amino Transferase 21 U/L (5-31); Blood Urea Nitrogen 11 mg/dL (9-16); Calcium 9.5 mg/dL (8.4-10.2); Carbon Dioxide 27 mmol/L (22-29); Chloride 106 mmol/L (96-108); Cholesterol 194 mg/dL (<200); Estimated Glomerular Filt Rate > 60; Glucose Fasting 130 mg/dL (60-99); HDL Cholesterol 50 mg/dL (>40); LDL Cholesterol Calculated 95 mg/dL (<100); Potassium 3.8 mmol/L (3.3-5.1); Sodium 141 mmol/L (135-145); Triglycerides 247 mg/dL (<150)
== END 2024-06-25 07:25 | disposition home or self-care (01) ==
LOC: HO.HMGCLDS 07:24
PROVIDERS: PCP Internal Medicine; Visit Provider Internal Medicine
DX: K50.10 Crohn's disease of large intestine without complications (principal); E11.9 Type 2 diabetes mellitus without complications; I25.10 Atherosclerotic heart disease of native coronary artery without angina pectoris
CPT/HCPCS: 36415; 80048; 80061; 83036; 84450; 84460

== ENCOUNTER 2024-06-27 05:42 | Outpatient (REF) | payer OTHER, SELFPAY ==
--- OUTSIDE RECORDS SUMMARY | 2024-06-27 09:06 | XMS_ITS | Continuity of Care Document ---
Author Organization [facility]cer Care Address [address] [place] [address]- Care Team Providers Care Butter Production Supervisor Name Role Phone Rosina QUEEN, Lorraine Carvajal Primary Care Physician Encounter [facility] Date(s): 05/04/24 - 06/03/24 [facility] [address] [place] [id number] Encounter Type: Triage Allergies, Adverse Reactions, Alerts Substance Criticality Severity Reaction Reaction Severity Status venlafaxine 1 Unable to assess criticality Persistent Mild N+V - Nausea and vomiting Active 1nausea vomiting Immunizations Given and Recorded Vaccine Date Status Refusal Reason tetanus/diphtheria/pertussis, acel(Tdap) 11/14/09 Given Medications aspirin 81 mg oral delayed release tablet 81 mg, 1, tablet, By Mouth, 2 times a day, Maintenance, 04/21/21 7:36:00 PM EST, Partial fill upon patient request if the prescription is for a schedule II opioid drug. Start Date: 04/21/21 Status: Ordered Repeat number: 1 atorvastatin 40 mg oral tablet 1 tablet = 40 mg, By Mouth, Daily, Maintenance, 04/21/21 7:36:00 PM EST, Tablet, Partial fill upon patient request if the prescription is for a schedule II opioid drug. Start Date: 04/21/21 Status: Ordered Repeat number: 1 Biotene By Mouth, 2 times a day, 0 Refills, Maintenance, 05/04/24 9:12:00 AM EST, Partial fill upon patientrequest if the prescription is for a schedule II opioid drug. Start Date: 05/04/24 Status: Ordered Repeat number: 1 hydroxyurea 500 mg oral capsule See Instructions, TAKE TWO CAPSULES BY MOUTH EVERY DAY, # 60 capsule, 5 Refills, Maintenance, 8/29/23 11:29:00 AM EDT, [facility], 160, cm, 11/05/22 9:08:00 EDT, Height, 77.2, kg, 11/05/22 9:08:00 EDT, Dry Weight Start Date: 01/20/23 Status: Ordered Quantity: 60.0 Unit: capsule Repeat number: 6 hydroxyurea 500 mg oral capsule See Instructions, TAKE TWO CAPSULES BY MOUTH EVERY DAY, # 60 capsule, 4 Refills, Maintenance, 12/30/23 12:10:00 PM EDT, [facility], 160, cm, 11/04/23 9:07:00 EDT, Height, 77.2, kg, 11/04/23 9:07:00 EDT, Dry Weight Start Date: 12/30/23 Status: Ordered Quantity: 60.0 Unit: capsule Repeat number: 5 hydroxyurea 500 mg oral capsule 2 capsule = 1,000 mg, By Mouth, Daily, # 60 capsule, 1 Refills, Maintenance, 02/23/23 2:30:00 PM EDT, Capsule, [facility], 160, cm, 11/05/22 9:08:00 EDT, Height, 77.2, kg, 11/05/22 9:08:00 EDT, Dry Weight Start Date: 02/23/23 Stop Date: 04/24/23 Status: Ordered Quantity: 60.0 Unit: capsule Repeat number: 2 metoprolol 25 mg oral tablet, extended release 25 mg, By Mouth, Daily, # 30 tablet, Refills 3, Tot. Refills 3, Maintenance, 08/26/18 1:14:34 PM EDT,Route to Pharmacy Electronically, [facility] 3 Start Date: 08/26/18 Stop Date: 12/24/18 Status: Ordered Quantity: 30.0 Unit: tablet Repeat number: 4 Vitamin B12 0 Refills, Maintenance, 05/04/24 9:11:00 AM EST, Partial fill upon patient request if the prescription is for a schedule II opioid drug. Start Date: 05/04/24 Status: Ordered Repeat number: 1 Problem List Condition Confirmation Course Effective Dates Status Health St atus Informant Crohn's disease in remission Confirmed Active Social History Social History Type Response Smoking Status Former smoker, quit more than 30 days ago; Use: Quit 25 years entered on: 09/02/18 Sex Sex Representation Female (finding) Patient Care team information Care Team Personnel Name: Sherly Pitts Position: [facility] Onco RN Member Role: Primary Care Nurse Name: Cheryl Montilla RN Position: [facility] SN RN Member Role: Primary Care Nurse Name: Rosina QUEEN , Lorraine Carvajal Position: Reference Physician Member Role: PCP Address: [address] [place] [address]- Telecom: Name: Tameka Jacobson RN Position: [facility] ED RN W/OE and Tasks Member Role: Primary Care Nurse Name: Bridger TEJEDA, Viri Loving Position: [facility] PCO Associate Professional Member Role: Primary Care Nurse Address: [address] [place] [address]- Telecom: Name: Kasey Heard RN Position: [facility] RN Member Role: Primary Care Nurse Name: Patsy Alcaraz RN Position: [facility] SN RN Member Role: Primary Care Nurse Care Team Related Persons Name: MOE EVANS Insurance Providers Guarantor name: [facility] Plan Information #: 1 Payer: [facility] H61 Member Number: RIKI Policy Number: NA Group Number: NA
--- OUTSIDE RECORDS SUMMARY | 2024-06-27 09:06 | XMS_ITS | Continuity of Care Document ---
Author Organization [facility] Address [address] [place] [address]- Care Team Providers Care Team Otr Truck Driver Name Role Phone Rosina QUEEN, Lorraine Carvajal Primary Care Physician Encounter [facility] Date(s): 04/29/24 - 05/29/24 [facility] [address] [place] [address]- Attending Physician: Malissa Munoz Admitting Physician: Malissa Munoz Referring Physician: Malissa Munoz Encounter Type: Triage Allergies, Adverse Reactions, Alerts [...] DAY, # 60 capsule, 5 Refills, Maintenance, 01/20/23 11:29:00 AM EDT, [facility], 160, cm, 11/05/22 9:08:00 EDT, Height, 77.2, kg, 11/05/22 9:08:00 EDT, Dry Weight Start Date: 01/20/23 Status: Ordered Quantity: 60.0 Unit: capsule Repeat number: 6 hydroxyurea 500 mg oral capsule See Instructions, TAKE TWO CAPSULES BY MOUTH EVERY DAY, # 60 capsule, 4 Refills, Maintenance, 12/30/23 12:10:00 PM EDT, [facility], 160, cm, 11/04/23 9:07:00 EDT, Height, 77.2, kg, 11/04/23 9:07:00 EDT, Dry Weight Start Date: 12/30/23 Status: Ordered Quantity: 60.0 Unit: capsule Repeat number: 5 hydroxyurea 500 mg oral capsule 2 capsule = 1,000 mg, By Mouth, Daily, # 60 capsule, 1 Refills, Maintenance, 02/23/23 2:30:00 PM EDT, Capsule, [facility], 160, cm, 11/05/22 9:08:00 EDT, Height, 77.2, kg, 11/05/22 9:08:00 EDT, Dry Weight Start Date: 02/23/23 Stop Date: 04/24/23 Status: Ordered Quantity: 60.0 Unit: capsule Repeat number: 2 metoprolol 25 mg oral tablet, extended release 25 mg, By Mouth, Daily, # 30 tablet, Refills 3, Tot. Refills 3, Maintenance, 08/26/18 1:14:34 PM EDT,Route to Pharmacy Electronically, [facility] 3 Start Date: 08/26/18 Stop Date: [...] on: 09/02/18 Sex Sex Representation Female (finding) Laboratory * Event Display: Non Lab Results Authored Date: Cardiology * Event Display: Cardiology Office Note, Non-BH Authored Date: Note * Michelle Girffin: PERFORM, SIGN, VERIFY Event Display: Patient Education/Instruction Authored Date: [facility] *Heme/Onc Adult Clinical Summary Name PER EVANS Age 54 Years 1965 PCP Not on Staff, PCP PCP Phone Visit Date 10/19/2019 11:06:00 Additional Instructions: Scheduled Appointments?? Future Appointments ?No Future Appointments Scheduled Follow-Up Instructions ?? With: Address: When: Kali Rubio [address] [place] [address] Hem/[place] [address] Smule (1) 02/22/2020 1:30 PM Diagnosis Medications: Please continue your medications until treatment is completed or stopped by your provider. Discuss any questions related to medications with your provider. Medications??to??Continue??with??No??Changes [facility],[address],??[place]??[id number],??(580)? ?583??-??7910 Hydroxyurea??(hydroxyurea??500??mg??oral??capsule) 3??Capsule??By??Mouth??on??M/W/F??and??2??Capsule ??by??mouth??on??other??days.??Refills:??2. Next??Dose: These??medications??were??not??printed??or??sent??to??your??pharmacy Aspirin??(aspirin??81??mg??oral??delayed??release??tablet) 81??Milligram??Oral??Daily.??Refills:??3. Next??Dose: Atorvastatin??(atorvastatin??80??mg??oral??tablet) 80??Milligram??Oral??Daily??at??Bedtime??for??30??Days.??Refills:??3. Next??Dose: Metoprolol??(metoprolol??25??mg??oral??tablet,??extended??release) 25??Milligram??Oral??Daily??for??30??Days.??Refills:??3. Next??Dose: Ticagrelor??(ticagrelor??90??mg??oral??tablet) 1??tab(s)??Oral??twice??a??day??for??30??Days.??Refills:??3. Next??Dose: Allergy Info:?? venlafaxine Medications Given This Visit Future Orders ?CBC w/ Differential? Order Date:11/23/19?- Complete by?11/27/19 ?CBC w/ Differential? Order Date:12/21/19?- Complete by?12/25/19 ?CBC w/ Differential? Order Date:01/18/20?- Complete by?01/22/20 ?CBC w/ Differential? Order Date:02/15/20?- Complete by?02/19/20 ?CBC w/ Differential? Order Date:03/14/20?- Complete by?03/18/20 ?CBC w/ Differential? Order Date:04/11/20?- Complete by?04/15/20 ?CBC w/ Differential? Order Date:05/09/20?- Complete by?05/13/20 Vital Signs Height Weight BMI Blood Pressure / Temperature Pulse Rate Respiratory Rate 02 Sat Mode of Delivery / You can now view a summary of your hospital visit from the comfort of your home through a free online portal called [employer]. [employer] is a website that allows you to securely view your medical information including discharge summary, medications and follow-up visits. ??You can alsosend a secure electronic message to your doctor???s office to request appointments, renew medications or just ask a question. You can enroll at [email or web address] or register during your next office visit. Disclaimer:?? The information provided is of a general nature and is intended to be used in conjunction with the recommendations and advice of your health care practitioner. ??Every effort has been made to ensure that the information provided is accurate and complete at the time it is provided to you however, as your needs change, or, as new ??information becomes available, different or additional instructions may be required. If you have questions, please consult with your primary care provider or pharmacist, as appropriate. ??This information is not intended to serve as substitution for assessment and evaluation by a qualified health care provider. If you do not have a primary care provider, you may find a [facility] provider by calling [facility] [employer] at [phone]. For information about the plan of care including goals and instructions for your diagnosis, please see the patient education orders section of this document. Patient Education Materials?? Patient Care team information Care Team Personnel Name: Sherly Pitts Position: [facility] Onco RN Member Role: Primary Care Nurse Name: Cheryl Montilla RN Position: [facility] SN RN Member Role: Primary Care Nurse Name: Lorraine Almaguer MD Position: Reference Physician Member Role: PCP Address: [address] [place] [address]- Telecom: Name: Kavon RNTameka Position: [facility] ED RN W/OE and Tasks Member Role: Primary Care Nurse Name: Bridger TEJEDA, Viri Loving Position: [facility] PCO Associate Professional Member Role: Primary Care Nurse Address: [address] [place] [address] - [place] [address]- Telecom: Name: Kasey Heard RN Position: [facility] RN Member Role: Primary Care Nurse Name: Patsy Alcaraz RN Position: [facility] SN RN Member Role: Primary Care Nurse Care Team Related Persons Name: MOE EVANS Insurance Providers Guarantor name: [facility] Plan Information #: 1 Payer: [id number] Member Number: NA Policy Number: NA Group Number: NA
--- OUTSIDE RECORDS SUMMARY | 2024-06-27 09:06 | XMS_ITS | Continuity of Care Document ---
Author Organization [facility] Address [address] [place] [address]- Care Team Providers Care Briquette Maker Name Role Phone Rosina QUEEN, Lorraine Carvajal Primary Care Physician Encounter [facility] Date(s): 05/04/24 - 06/03/24 [facility] [address] [place] [address] Encounter Type: Triage Allergies, Adverse Reactions, Alerts [...] 5 Refills, Maintenance, 8/29/23 11:29:00 AM EDT, [facility], 160, cm, 11/05/22 9:08:00 EDT, Height, 77.2, kg, 11/05/22 9:08:00 EDT, Dry Weight Start Date: 01/20/23 Status: Ordered Quantity: 60.0 Unit: capsule Repeat number: 6 hydroxyurea 500 mg oral capsule See Instructions, TAKE TWO CAPSULES BY MOUTH EVERY DAY, # 60 capsule, 4 Refills, Maintenance, 12/30/23 12:10:00 PM EDT, [facility], 160, cm, 11/04/23 9:07:00 EDT, Height, 77.2, kg, 11/04/23 9:07:00 EDT, Dry Weight Start Date: 12/30/23 Status: Ordered Quantity: 60.0 Unit: capsule Repeat number: 5 hydroxyurea 500 mg oral capsule 2 capsule = 1,000 mg, By Mouth, Daily, # 60 capsule, 1 Refills, Maintenance, 02/23/23 2:30:00 PM EDT, Capsule, [facility], 160, cm, 11/05/22 9:08:00 EDT, Height, 77.2, kg, 11/05/22 9:08:00 EDT, Dry Weight Start Date: 02/23/23 Stop Date: 04/24/23 Status: Ordered Quantity: 60.0 Unit: capsule Repeat number: 2 metoprolol 25 mg oral tablet, extended release 25 mg, By Mouth, Daily, # 30 tablet, Refills 3, Tot. Refills 3, Maintenance, 08/26/18 1:14:34 PM EDT,Route to Pharmacy Electronically, [facility] Start Date: 08/26/18 Stop Date: 12/24/18 [...] Care Team Personnel Name: Sherly Pitts Position: [facility] Onco RN Member Role: Primary Care Nurse Name: Cheryl Montilla RN Position: [facility] SN RN Member Role: Primary Care Nurse Name: Rosina QUEEN , Lorraine Carvajal Position: Reference Physician Member Role: PCP Address: [address] [place] [address]- Telecom: Name: Tameka Jacobson RN Position: [facility] ED RN W/OE and Tasks Member Role: Primary Care Nurse Name: Bridger TEJEDA, Viri Loving Position: [facility] PCO Associate Professional Member Role: Primary Care Nurse Address: [address] [place] [address]- Telecom: Name: Kasey Heard RN Position: [facility] RN Member Role: Primary Care Nurse Name: Patsy Alcaraz RN Position: [facility] SN RN Member Role: Primary Care Nurse Care Team Related Persons Name: MOE EVANS Insurance Providers Guarantor name: [facility] Plan Information #: 1 Payer: [facility] H61 Member Number: RIKI Policy Number: NA Group Number: NA
--- OUTSIDE RECORDS SUMMARY | 2024-06-27 09:06 | XMS_ITS | Continuity of Care Document ---
Author Organization [facility]. If a dditional information is needed, contact Health Information Management at [phone] Address [address] [place] [address] Phone Care Team Providers Care Steel Rule Die Maker Apprentice Name Role Phone Unavailable Unavailable Unavailable Unavailable [...]
[2024-06-27 12:49] LABS: Creatinine Urine 109.68 mg/dL; Microalbum/Creatinine Ratio Ur 7.2 ug/mg cr (<30)
== END 2024-06-27 05:43 | disposition home or self-care (01) ==
LOC: HO.HMGCLNP 05:42
PROVIDERS: PCP Internal Medicine; Visit Provider Internal Medicine
DX: K50.10 Crohn's disease of large intestine without complications (principal); I25.10 Atherosclerotic heart disease of native coronary artery without angina pectoris; E11.9 Type 2 diabetes mellitus without complications
CPT/HCPCS: 82043; 82570

== ENCOUNTER 2024-06-27 08:44 | Outpatient (AMB) | payer OTHER, SELFPAY ==
[2024-06-27 08:52] VITALS: BP 120/70; PULSE 72; RESP 14; TEMP 36.8; O2SAT 95; BMI 27.3
--- NOTE | 2024-06-27 08:52 | MHC.PC.OV ---
Vital Signs 06/27/24 08:52 Height 5 ft 3 in Weight 154 lb BMI 27.3 BP 120/70 Blood Pressure Location Lt brachial Position Sitting Respiration 14 Pulse 72 Pulse Source Pulse Oximeter Temp 98.2 F Temp Source Oral Pulse Oximetry (%) 95 Oxygen Delivery Method Room Air Intake Visit Reasons: f/u DM Intake Note: Pt is here today for her f/u DM Allergies tetracycline Adverse Reaction (Unknown, Verified 06/27/24 09:26) nausea Medication List - Last Reconciled 06/27/24 by Lorraine Almaguer MD aspirin 81 mg PO DAILY atorvastatin 40 mg PO BEDTIME calcium crb,nrf-C6-psb86-genis 300 mg-200 unit -13.5 mg (Citracal Plus Bone Density Builder) 1 tab PO DAILY PRN hydroxyurea 1,000 mg PO DAILY omeprazole 20 mg PO DAILY@0630 Tobacco use date assessed: 06/27/24 Dental Screening Dental Screen Date: 06/27/24 Did you have a dental visit in the last 12 months?: Yes Did you have a dental problem in the last 6 months where you did not have access to dental care?: No Was dental information given to patient?: Patient has dentist HPI f/u DM HPI Details - The patient is a 58-year-old female presenting for a follow up regarding her diabetes mellitus, currently not on any medication... Recent A1c levels have increased due to inadequate exercise and poor diet during the holiday season. Stress and dietary habits, influenced significantly by work related obligations, have contributed to a decline in glycemic control -history of primary myelofibrosis and patient saw platelet elevation in recent labs , attributes due work-related stress and additional job duties due to recent staffing changes. [facility] Medical History (Updated 06/27/24 @ 09:39 by Lorraine Almaguer MD) Hypertriglyceridemia Diabetes mellitus with hyperglycemia Diabetes mellitus Crohn's colitis History of hyperparathyroidism Vitamin D deficiency Heartburn History of Crohn's disease History of non-ST elevation myocardial infarction (NSTEMI) Coronary artery disease Primary myelofibrosis Surgical History H/O parathyroidectomy History of bone marrow biopsy Hx of colonoscopy History of heart artery stent Family History Mother Breast cancer Social History Household Members: Spouse Housing: House Do you presently have visiting nurse or other home services: No Alcohol intake: current Alcohol intake frequency: holidays/special occasions only Patient Tobacco Use Status: Former Tobacco user Tobacco use type: Cigarette Years Smoked: 10 years e-Cigarette/Vaping Use: Never Used service: No Current occupational status: employed Cognitive needs: No Hearing needs: No Vision needs: Yes Questionnaire Thrive Questionnaire Date Thrive assessed: 05/26/24 I am a: Patient What is your living situation today?: I have a steady place to live Within the past 12 months, did the food you bought not last and you didn't have the money to get more?: Never true Within the past 12 months, did you worry whether your food would run out before you got money to buy more?: Never true Do you have trouble paying for medicines?: No Do you have trouble getting transportation to medical appointments?: No Do you have trouble paying your heating and electricity bill?: No Do you have trouble taking care of your child, family member or friend?: No Do you have trouble with day-to-day activities such as bathing, preparing meals, shopping, managing finances, etc.?: No Are you currently unemployed and looking for a job?: No Are you interested in more education?: No Please select the resources that you would like help with: None Currently or been in a relationship where the following occur: No concerns reported THRIVE Score: 0 JAY-7 AMB Questionnaire JAY-7 Date JAY - 7 assessed: 05/26/24 Source: Developed by Drs. Eugene Jimenez, Sirisha Cruz, Александр Nieves and colleagues, with an educational jessi from [employer]. Review of Systems Const Denies body aches, Denies fatigue, Denies fever(s), Denies headache(s) and Denies weakness Eyes Denies change in vision ENT Denies dizziness and Denies headache(s) Card Denies chest pain, Denies lightheadedness, Denies palpitations and Denies dyspnea Resp Denies cough, Denies dyspnea and Denies wheezing GI Denies abdominal pain and Denies heartburn (Controlled with famotidine) Denies hematuria, Denies urinary frequency, Denies dysuria and Denies urinary urgency Musc Denies arthralgias and Denies stiffness Skin/Breast Denies rash Neuro Denies dizziness, Denies headache(s) and Denies weakness Psych Reports no additional complaints Endo Denies fatigue, Denies polydipsia, Denies polyuria and Denies palpitations Graham/Lymph Denies easy bruising Aller/Immun Denies seasonal rhinorrhea and Denies wheezing Physical exam (Primary Care) Vital Signs: Last Vital Signs Temp 98.2 F 06/27/24 08:52 Pulse 72 06/27/24 08:52 Resp 14 06/27/24 08:52 BP 120/70 06/27/24 08:52 Pulse Ox 95 06/27/24 08:52 Oxygen Delivery Method Room Air 06/27/24 08:52 BMI result Body Mass Index 27.3 Tobacco/Smoking Status: Tobacco use Status Tobacco use date assessed 06/27/24 06/27/24 08:58 Patient Tobacco Use Status Former Tobacco user 06/27/24 08:54 Tobacco use type Cigarette 06/27/24 08:54 e-Cigarette/Vaping Use Never Used 06/27/24 08:54 Thrive Assessment: Date of Thrive Assessment Date Thrive assessed 05/26/24 06/27/24 08:54 Currently or been in a relationship where the following occur: No concerns reported Advance Care Planning discussion: Completed/Scanned Date of discussion: 06/27/24 Who was present: Patient Forms completed: Health Care Proxy Time spent: 16-45 minutes Actual minutes spent: 2 Const General: comfortable and no acute distress Orientation/consciousness: patient oriented x3 HENMT Ears: external ears normal and EAC's normal General nose exam: Normal external nose present Mouth: oropharynx normal and moist mucous membranes Eyes General: appearance normal, both eyes and all related structures Neck Neck: Yes full ROM, Yes no lymphadenopathy and Yes supple Resp Effort & Inspection: normal respiratory effort and able to speak in complete sentences Auscultation: clear to auscultation bilaterally Cardio Rate: regular rate Rhythm: regular rhythm Heart sounds: S1 normal heart sound present and S2 normal heart sound present GI Inspection: Yes normal to inspection Palpation (GI): Soft to palpation, nontender and no masses Auscultation: normal bowel sounds Back/Spine/Pelvis Back: No back tenderness Neuro General: patient oriented x3, gait normal, tone normal, moves all extremities, Normal light touch and pain sensation and no focal motor deficits Cognition (Neuro): normal cognition Gait exam (Neuro): Normal gait present Motor exam (neuro): 5/5 motor strength present throughout Extrem General: Yes full ROM, Yes no joint enlargement, Yes no clubbing, cyanosis or edema, Yes no pedal edema and Yes normal gait Results Reviewed Results Reviewed: Laboratory Tests 04/18/24 06/25/24 06:58 07:27 Estimat Average Glucose 140 154 Hemoglobin A1c % 6.5 H 7.0 H Name: Ashley Hess Age/Sex: 58/F : 1965 Unit#: [id number] Attend Dr: Lorraine Almaguer MD Re06/25/24 Status: DEP REF Location: [facility] Disch: SPEC : [id number] MARTA: 06/25/24 STATUS: COMP REQ : [id number] RECD: 06/25/24-[address]: Lorraine Almaguer MD COMP: 06/25/24 ENTERED: 06/25/[address]: ORDERED: Met Prof Fast, AST, ALT, Lipid Panel Test Result Flag Reference Sodium 141 135-145 mmol/L Potassium 3.8 3.3-5.1 mmol/L CL 106 96-108 mmol/L CO2 27 22-29 mmol/L Gap 12 12-20 BUN 11 9-16 mg/dL Creat 0.71 0.5-1.4 mg/dL eGFR > 60 Chronic Kidney Disease: Estimated GFR < 60 mL/min/1.73m2 Severe Kidney Disease: Estimated GFR < 15 mL/min/1.73m2 FBS 130 H 60-99 mg/dL A fasting glucose of 126 mg/dl or greater on more than one occasion is considered diagnostic of diabetes. CA 9.5 8.4-10.2 mg/dL AST (GOT) 21 5-31 U/L ALT (GPT) 20 0-31 U/L Triglyceride 247 H <150 mg/dL Desirable Triglyceride: less than 150 mg/dL Borderline High Triglyceride 150-199 mg/dL High Triglyceride: 200-499 mg/dL Very High Triglyceride: greater than or equal to 5OO mg/dL Cholesterol 194 <200 mg/dL Desirable Cholesterol: less than 200 mg/dL Borderline High Cholesterol: 200-239 mg/dL High Cholesterol: greater than 239 mg/dL LDL Calculated 95 <100 mg/dL Desirable LDL: less than 100 mg/dL Near Optimal/Above Optimal LDL: 110-129 mg/dL Borderline High LDL: 130-159 mg/dL High LDL: 160-189 mg/dL Very High LDL: greater than or equal to 190 mg/dL HDL 50 >40 mg/dL Desirable HDL: greater than 40 mg/dL Note: This HDL assay may give artificially low results in patients with liver disease. Coding Level of Care Code Est Pt Level 4 (26005) Complex EM visit Add On G2211 Diagnoses Diabetes mellitus with hyperglycemia E11.65 Hypertriglyceridemia E78.1 Advanced directives, counseling/discussion Z71.89 Additional Codes Vital Signs *Quality* - Advance Care Planning discussion: Completed/Scanned ([id number]) Vital Signs *Quality* - Time spent: 16-45 minutes ([id number]) Assessment & Plan Assessment & Plan (1) Diabetes mellitus with hyperglycemia: Code(s): E11.65 - Type 2 diabetes mellitus with hyperglycemia Category: Medical Plan: Patient refused to start metformin at present, wants to improve diabetes control through diet and exercise. Will repeat an fasting lab A1c in 3 months (2) Hypertriglyceridemia: Code(s): E78.1 - Pure hyperglyceridemia Category: Medical Plan: Reinforced importance of following a healthy diet, getting regular exercise and getting diabetes mellitus under control (3) Advanced directives, counseling/discussion: Code(s): Z71.89 - Other specified counseling Plan: Initiated the conversation about Advanced Directives. Advanced Directives help patients prepare for current and future decisions about their medical treatment and place of care. Discussed with patient that it is a process where a patients current condition and prognosis are reviewed, their wishes for information regarding their illness are elicited, and likely medical dilemmas are presented and options discussed. The fo healthcare proxy form completed today, which can be amended as needed, reviewed yearly and make changes as needed Orders: Orders Aspartate Amino Transferase 09/22/24 E11.65 - Type 2 diabetes mellitus with hyperglycemia, E78.1 - Pure hyperglyceridemia, Z78.0 - Asymptomatic menopausal state Hemoglobin A1c 09/22/24 E11.65 - Type 2 diabetes mellitus with hyperglycemia, E78.1 - Pure hyperglyceridemia, Z78.0 - Asymptomatic menopausal state Alanine Aminotransferase 09/22/24 E11.65 - Type 2 diabetes mellitus with hyperglycemia, E78.1 - Pure hyperglyceridemia, Z78.0 - Asymptomatic menopausal state Lipid Panel 09/22/24 E11.65 - Type 2 diabetes mellitus with hyperglycemia, E78.1 - Pure hyperglyceridemia, Z78.0 - Asymptomatic menopausal state Vitamin D 25-OH Total 09/22/24 E11.65 - Type 2 diabetes mellitus with hyperglycemia, E78.1 - Pure hyperglyceridemia, Z78.0 - Asymptomatic menopausal state
== END 2024-06-27 10:03 | disposition home or self-care (01) ==
PROVIDERS: PCP Internal Medicine; Visit Provider Internal Medicine
DX: E11.65 Type 2 diabetes mellitus with hyperglycemia (principal); E78.1 Pure hyperglyceridemia; Z71.89 Other specified counseling

== ENCOUNTER 2024-09-15 07:48 | Outpatient (AMB) | payer OTHER, SELFPAY ==
--- NOTE | 2024-09-15 07:51 | MHC.OFFVIS ---
Vital Signs 09/15/24 07:57 Height 5 ft 3 in Weight 158 lb 11.725 oz BMI 28.1 BP 116/76 Blood Pressure Location Lt brachial Position Sitting Pulse 72 Pulse Source Pulse Oximeter Pulse Oximetry (%) 95 Oxygen Delivery Method Room Air Intake Visit Reasons: Hyperthyroidism after surgery is back Intake Note: Patient present today for Hyperthyroidism follow up. Instrumental Teacher Required: No Accompanied by: Self / Same As Patient Allergies tetracycline Adverse Reaction (Unknown, Verified 09/15/24 07:57) nausea Medication List - Last Reconciled 09/15/24 by Eugene Gutiérrez MD aspirin 81 mg PO DAILY atorvastatin 40 mg PO BEDTIME calcium crb,qkc-W3-lgz20-genis 300 mg-200 unit -13.5 mg (Citracal Plus Bone Density Builder) 1 tab PO DAILY PRN hydroxyurea 1,000 mg PO DAILY omeprazole 20 mg PO DAILY@0630 HPI Comments Details: 58 YO F with who is seen in consultation at the request of PCP for Hypercalcemia. First noted to have high calcium couple of mos ago . Not Currently using Calcium supplement . Takes 88407 IU of Vitamin D weekly Not Currently using HCTZ. Kidney stones: No Osteoporosis: No History of [place] use: No Biotin use: Yes for long time and states calcium was normal in past Family history of high calcium or kidney stones: No Renal imaging: No DXA: Labs: Status post parathyroid surgery with 3 and half plan removal in [place] at [facility]. She was last seen in 2022. She was to have [facility] with repeat calcium and PTH The patient is a 58-year-old female presenting with concerns about calcium and parathyroid hormone levels, vitamin D deficiency, and associated symptoms. Post-parathyroidectomy, her calcium and parathyroid hormone levels normalized, although she is experiencing a slightly low vitamin D level causing hair loss. She stopped taking vitamin D3 upon feeling symptomatic. Recent blood work reveals elevated albumin, possibly influenced by her myelofibrosis. She expresses concerns about frequent urination and chest pain, with recently diagnosed Type 2 Diabetes Mellitus posing mild abnormalities in her A1c levels. She notes significant stress in her work environment and is eager to understand the connection to her endocrine health. Labs: - Vitamin D: 27.9 (slightly low) - Corrected Calcium: 9.2 (normal) - Albumin: 4.9 (high normal) - Parathyroid Hormone: 44 (normal) - Hematology noted red blood cell count: 3.59 (moderately low) PENDING SALE TO [facility] Medical History (Updated 06/27/24 @ 09:39 by Lorraine Almaguer MD) Hypertriglyceridemia Diabetes mellitus with hyperglycemia Diabetes mellitus Crohn's colitis History of hyperparathyroidism Vitamin D deficiency Heartburn History of Crohn's disease History of non-ST elevation myocardial infarction (NSTEMI) Coronary artery disease Primary myelofibrosis Surgical History H/O parathyroidectomy History of bone marrow biopsy Hx of colonoscopy History of heart artery stent Family History Mother Breast cancer Social History Household Members: Spouse Housing: House Do you presently have visiting nurse or other home services: No Alcohol intake: current Alcohol intake frequency: holidays/special occasions only Patient Tobacco Use Status: Former Tobacco user Tobacco use type: Cigarette Years Smoked: 10 years e-Cigarette/Vaping Use: Never Used service: No Current occupational status: employed Cognitive needs: No Hearing needs: No Vision needs: Yes Physical Exam Vital Signs: BMI result Body Mass Index 28.1 Assessment & Plan Assessment & Plan (1) Hypercalcemia: Code(s): E83.52 - Hypercalcemia Category: Medical Plan: This is a 58-year-old white female with a history of PTH-mediated hypercalcemia most likely due to primary hyperparathyroidism. Status post parathyroidectomy. She complains of repeat symptoms that she had prior to surgery 1. Postoperative status post parathyroidectomy The patient's calcium and parathyroid levels are stable post-surgery without evidence of further endocrine disruption. No need for any further endocrine evaluation or follow up 2. Myelofibrosis Patient advised to consult hematology regarding the elevated albumin for potential multiple myeloma screening. 3. Vitamin D deficiency Advised to resume vitamin D supplementation at a potentially increased dose to mitigate deficiency and related symptoms. 5. Elevated albumin levels Discussed with the patient potential causes related to her conditions and suggest hematology follow-up. 6. Chest pain Prioritize cardiology review due to past cardiac history and reported chest pain. I discussed the patient's current condition regarding stable parathyroid hormone and calcium levels post-surgery. We addressed the slightly low vitamin D levels and ongoing hair loss, advising a return to vitamin D supplementation. Concerning the elevated albumin, I recommended the patient follow up with her sensitized paper tester, emphasizing potential testing for myeloproliferative disorders. I highlighted the importance of cardiology consultation given her history of cardiac events and the recent chest pain episodes, explaining why this takes precedence over other symptoms. We talked about the potential impact of workplace stress on her symptoms and the need for comprehensive follow-up with both primary and specialist care for holistic management. - Follow up with your sensitized paper tester for evaluation of elevated albumin. - Resume vitamin D supplementation;- Monitor blood sugar levels and reduce daily sugar intake. - Schedule an appointment with your seismic survey assistant for assessment of chest pain. - Follow up with your primary care physician for ongoing management of diabetes. - Notify healthcare provider if you experience any new or worsening symptoms. The patient had an opportunity to ask questions regarding treatment plan. The patient expressed understanding and agreement with the above treatment plan. Patient was informed and verbally consented to the use of an ambient scribe for clinic note documentation during this visit. (2) History of hyperparathyroidism: Code(s): Z86.39 - Personal history of other endocrine, nutritional and metabolic disease Category: Medical Plan: See above Orders: Orders Calcium 09/13/24 E83.52 - Hypercalcemia Albumin Level 09/13/24 E83.52 - Hypercalcemia Vitamin D 25-OH Total 09/13/24 E83.52 - Hypercalcemia Parathyroid Hormone Intact 09/13/24 E83.52 - Hypercalcemia Coding Level of Care Code Est Pt Level 3 (36662) Diagnoses Hypercalcemia E83.52 History of hyperparathyroidism Z86.39
--- OUTSIDE RECORDS SUMMARY | 2024-09-15 07:56 | XMS_ITS ---
Author Organization [facility] Address [address] [place] [address] [place] [address] Care Team Providers Care Shipping Clerk Crating Name Role Phone Raúl Perkins Unavailable [phone] REASON FOR VISIT POLLUTION CONTROL TECHNICIAN appt inf ing Encounters Encounter Location Date Provider Diagnosis [address] [place] [address] 07/27/2023 Raúl Perkins Plan Of Treatment No Information Progress Notes * Gary HESSOB:1965 (57 yo F)Acc No.[id number]:07/27/2023 Patient:?Ashley Hess :1965???Age:57 Y???Sex:Female Address:[address] [place] [address] * true * Date:? Generated for Marty alva/Abiola/eTransmitting on:?09/15/2024 07:55 AM EDT
--- OUTSIDE RECORDS SUMMARY | 2024-09-15 07:56 | XMS_ITS | Patient Health Record ---
Author Organization [facility] Yoko Mcclellan Address [address] [facility] [place] [address] Care Team Providers Care Aircraft Structural Repair Mechanic Name Role Phone Raúl Perkins Unavailable [phone] Reason For Referral No Information Plan Of Treatment No Information Insurance Providers Payer Name Payer Address Payer Phone Subscriber Number Group Number Insured Name Patient Relationship to Insured Coverage Start Date Coverage End Date [facility]-[address] [address] [address] [place] [address] [phone] Ashley Hess Self - patient is the insured
--- OUTSIDE RECORDS SUMMARY | 2024-09-15 07:56 | XMS_ITS ---
Author Organization [facility] Address [address] [place] [address] [place] [address] Care Team Providers Care Veterinary Nurse Name Role Phone Raúl Perkins Unavailable [phone] Encounters Encounter Location Date Provider [facility] [address] [address] 07/29/2023 Raúl Perkins Plan Of Treatment No Information Progress Notes * Gary HESSOB:1965 (58 yo F)Acc No.[id number]:07/29/2023 Progress Notes Patient:?Ashley HESS Provider:?Raúl Perkins DPM :1965???Age:57 Y???Sex:Female D ate:07/29/2023 [address] [place] Subjective: * Chief Complaints: * ??? * Medical History:? Objective: * Vitals:? Assessment: Plan: * Treatment: * Images: * The named appointment provid er may or may not be the originator of this progress note, and it is not deemed complete until electronically signed by the appointment provider. Sign off status: Pending * Provider:?Raúl Perkins DPM Date:?2023 Generated for Marty alva/Abiola/eTcathiesmitting on:?09/15/2024 07:55 AM EDT
--- OUTSIDE RECORDS SUMMARY | 2024-09-15 07:56 | XMS_ITS | Continuity of Care Document ---
Author Organization [facility]. If a dditional information is needed, contact Health Information Management at [phone] Address [address] [place] [address] Phone Care Team Providers Care Backhoe Operator Name Role Phone Unavailable Unavailable Unavailable Unavailable Unavailable Unavailable Unavailable Unavailable Unavailable Unavailable Unavailable Allergies and Adverse Reactions Tetracycline Analogues(Aller gy) Onset: 30-Jul-2022 Reaction:NAUSEA Medications 1 ML phenylephrine hydrochlo ride 10 MG/ML Injection [Vazculep];Provider Administration Instructions:CAUTION: This medication is a vesicant and should bediluted and administered slowly through a running IV. Quantity:1 Letmacring Humberto K DO Start:06-Aug-2022 Comments:Provider Administration Instructions:CAUTION: This medication is a vesicant and should bediluted and administered slowly through a running IV. 1 ML ePHEDrine sulfate 50 MG /ML Injection;Provider Administration Instructions:LASA LOOK ALIKE SOUND ALIKE MEDICATION*NAME ALERT* ePHEDrine Quantity:1 Letmacring Humberto K DO Start:06-Aug-2022 Status:Discontinued Comments:Provider Administration Instructions:LASA LOOK ALIKE SOUND ALIKE MEDICATION*NAME ALERT* ePHEDrine 2 ML magnesium sulfate 500 M G/ML Injection;Provider Administration Instructions:1 GM OF MAGNESIUM SULFATE = 8.12 MEQ OF MAGNESIUM SULFATE Quantity:1 Letzring Humberto K DO Start:06-Aug-2022 Status:Discontinued Comments:Provider Administration Instructions:1 GM OF MAGNESIUM SULFATE = 8.12 MEQ OF MAGNESIUM SULFATE ceFAZolin 1000 MG Injection;Provider Administration Instructions:1 GRAM/SWFI [...] less potent prescribed medication based 1 ML dexAMETHasone phosphate 10 MG/ML Injection Quantity:1 Oliver Dowell [...] ML) Quantity:1 Oliver Dowell DO Start:06-Aug-2022 Status:Discontinued KETAMINE HCL 50 MG/ML Syring e Quantity:1 [...]
--- OUTSIDE RECORDS SUMMARY | 2024-09-15 07:56 | XMS_ITS | Patient Health Record ---
Author Organization [facility] Address [address] [place] [address] Care Team Providers Care Heart Surgeon Name Role Phone IanLink del rio Unavailable [phone] Referred, Self Unavailable [phone] Allergies Allergen (clinical drug ingredient) Drug/Non Drug Allergy documented on EMR Reaction Allergy Type Onset Date Status tetracycline Tetracycline nausea Drug Allergy A ctive Reason For Referral No Information Problems Problem Type SNOMED Code ICD Code Onset Dates Problem Status W/U Status Risk Notes Problem Primary hyperparathyroidism (33392705) Primary hyperparathyroidism (E21.0) Active confirmed Plan Of Treatment No Information Insurance Providers Payer Name Payer Address Payer Phone Subscriber Number Group Number Insured Name Patient Relationship to Insured Coverage Start Date Coverage End Date R [address] [address] [place] [address] [phone] [id number] Ashley Hess Self - patient is the insured
[2024-09-15 07:57] VITALS: BP 116/76; PULSE 72; O2SAT 95; BMI 28.1
== END 2024-09-15 09:15 | disposition home or self-care (01) ==
LOC: HO.ENCR 07:49
PROVIDERS: PCP Internal Medicine; Visit Provider Internal Medicine Endocrinology, Diabetes & Metabolism
DX: E83.52 Hypercalcemia (principal); Z86.39 Personal history of other endocrine, nutritional and metabolic disease
CPT/HCPCS: 99213

== ENCOUNTER 2024-10-08 07:01 | Outpatient (REF) | payer OTHER, SELFPAY ==
--- OUTSIDE RECORDS SUMMARY | 2024-10-08 07:03 | XMS_ITS | Patient Health Record ---
Author Organization [facility] Yoko Mcclellan Address [address] [facility] [place] [address] Care Team Providers Care Asparagus Cutter Name Role Phone Raúl Perkins Unavailable [phone] Reason For Referral No Information Plan Of Treatment No Information Insurance Providers Payer Name Payer Address Payer Phone Subscriber Number Group Number Insured Name Patient Relationship to Insured Coverage Start Date Coverage End Date [facility]-[address] [address] [address] [place] [address] [phone] Ashley Hess Self - patient is the insured
--- OUTSIDE RECORDS SUMMARY | 2024-10-08 07:03 | XMS_ITS ---
Author [facility] Address [address] [place] [address] [place] [address] Care Team Providers Care Judicial Reporter Name Role Phone Raúl Perkins Unavailable [phone] Encounters Encounter Location Date Provider [facility] [address] [address] 07/29/2023 Raúl Perkins Plan Of Treatment No Information Progress Notes * Gary HESSOB:1965 (58 yo F)Acc No.[id number]:07/29/2023 Progress Notes Patient:?Ashley HESS Provider:?Raúl Perkins DPM :1965???Age:57 Y???Sex:Female D ate:07/29/2023 Address[place] Subjective: * Chief Complaints: * ??? * Medical History:? Objective: * Vitals:? Assessment: Plan: * Treatment: * Images: * The named appointment provid er may or may not be the originator of this progress note, and it is not deemed complete until electronically signed by the appointment provider. Sign off status: Pending * Provider:?Raúl Perkins DPM Date:?2023 Generated for Marty alva/Abiola/Whitneysmitting on:?10/08/2024 07:03 AM EDT
--- OUTSIDE RECORDS SUMMARY | 2024-10-08 07:04 | XMS_ITS ---
Author Organization [facility] Address [address] [place] [address] [place] [address] Care Team Providers Care Conservation Biology Professor Name Role Phone Raúl Perkins Unavailable [phone] REASON FOR VISIT DENTAL HYGIENE PROFESSOR appt inf ing Encounters Encounter Location Date Provider Diagnosis [address] [place] [address] 07/27/2023 Raúl Perkins Plan Of Treatment No Information Progress Notes * Gary HESSOB:1965 (57 yo F)Acc No.[id number]:07/27/2023 Patient:?Ashley Hess :1965???Age:57 Y???Sex:Female Address:[address] [place] [address] * true * Date:? Generated for Marty alva/Abiola/eTransmitting on:?10/08/2024 07:03 AM EDT
--- OUTSIDE RECORDS SUMMARY | 2024-10-08 07:05 | XMS_ITS | Patient Health Record ---
Author Organization [facility] Address [address] [place] [address] Care Team Providers Care Test Rack Operator Name Role Phone IanLink del rio Unavailable [phone] Referred, Self Unavailable [phone] Allergies Allergen (clinical drug ingredient) Drug/Non Drug Allergy documented on EMR Reaction Allergy Type Onset Date Status tetracycline Tetracycline nausea Drug Allergy A ctive Reason For Referral No Information Problems Problem Type SNOMED Code ICD Code Onset Dates Problem Status W/U Status Risk Notes Problem Primary hyperparathyroidism (71508268) Primary hyperparathyroidism (E21.0) Active confirmed Plan Of Treatment No Information Insurance Providers Payer Name Payer Address Payer Phone Subscriber Number Group Number Insured Name Patient Relationship to Insured Coverage Start Date Coverage End Date R [address] [address] [place] [address] [id number] Ashley Hess Self - patient is the insured
[2024-10-08 11:43] LABS: Estimated Average Glucose 128 mg/dL; Hemoglobin A1C 152.5143 umol/L; Hemoglobin A1c % 6.1 % (<6.0)
[2024-10-08 11:44] LABS: Alanine Aminotransferase 28 U/L (0-31); Aspartate Amino Transferase 28 U/L (5-31); Cholesterol 184 mg/dL (<200); HDL Cholesterol 56 mg/dL (>40); LDL Cholesterol Calculated 97 mg/dL (<100); Triglycerides 158 mg/dL (<150)
[2024-10-08 12:04] LABS: Vitamin D 25-OH Total 76.3 ng/mL (>30)
== END 2024-10-08 07:02 | disposition home or self-care (01) ==
LOC: HO.HMGCLDS 07:01
PROVIDERS: PCP Internal Medicine; Visit Provider Internal Medicine
DX: E11.65 Type 2 diabetes mellitus with hyperglycemia (principal); E78.1 Pure hyperglyceridemia; Z78.0 Asymptomatic menopausal state
CPT/HCPCS: 36415; 80061; 82306; 83036; 84450; 84460

== ENCOUNTER 2024-10-10 09:15 | Outpatient (AMB) | payer OTHER, SELFPAY ==
--- OUTSIDE RECORDS SUMMARY | 2024-10-10 09:28 | XMS_ITS | Patient Health Record ---
Author Organization [facility] Address [address] [place] [address] Care Team Providers Care Bench Examiner Name Role Phone IanLink del rio Unavailable [phone] Referred, Self Unavailable [phone] Allergies Allergen (clinical drug ingredient) Drug/Non Drug Allergy documented on EMR Reaction Allergy Type Onset Date Status tetracycline Tetracycline nausea Drug Allergy A ctive Reason For Referral No Information Problems Problem Type SNOMED Code ICD Code Onset Dates Problem Status W/U Status Risk Notes Problem Primary hyperparathyroidism (65500550) Primary hyperparathyroidism (E21.0) Active confirmed Plan Of Treatment No Information Insurance Providers Payer Name Payer Address Payer Phone Subscriber Number Group Number Insured Name Patient Relationship to Insured Coverage Start Date Coverage End Date R [address] [address] [place] [address] [id number] Ashley Hess Self - patient is the insured
--- OUTSIDE RECORDS SUMMARY | 2024-10-10 09:28 | XMS_ITS ---
Author Organization [facility] Address [address] [place] [address] [place] [address] Care Team Providers Care Flight Coordinator Name Role Phone Raúl Perkins Unavailable [phone] REASON FOR VISIT MAINTENANCE CLERK appt inf ing Encounters Encounter Location Date Provider Diagnosis [address] [place] [address] 07/27/2023 Raúl Perkins Plan Of Treatment No Information Progress Notes * Gary HESSOB:1965 (57 yo F)Acc No.[id number]:07/27/2023 Patient:?Ashley Hess :1965???Age:57 Y???Sex:Female Address:[address] [place] [address] * true * Date:? Generated for Marty alva/Abiola/eTransmitting on:?10/10/2024 09:27 AM EDT
--- OUTSIDE RECORDS SUMMARY | 2024-10-10 09:28 | XMS_ITS ---
Author Organization [facility] Address [address] [place] [address] [place] [address] Care Team Providers Care Fancy Packer Name Role Phone Raúl Perkins Unavailable [phone] Encounters Encounter Location Date [facility] [address] [address] 07/29/2023 Raúl Perkins Plan Of Treatment No Information Progress Notes * Gary HESSOB:1965 (58 yo F)Acc No.[id number]:07/29/2023 Progress Notes Patient:?Ashley HESS Provider:?Raúl Perkins DPM :1965???Age:57 Y???Sex:Female D ate:07/29/2023 [address] [place] Subjective: * Chief Complaints: * ??? * Medical History:? Objective: * Vitals:? Assessment: Plan: * Treatment: * Images: * The named appointment provid er may or may not be the originator of this progress note, and it is not deemed complete until electronically signed by the appointment provider. Sign off status: Pending * Provider:?Raúl Perkins DPM Date:?2023 Generated for Marty alva/Abiola/Whitneysmitting on:?10/10/2024 09:27 AM EDT
--- OUTSIDE RECORDS SUMMARY | 2024-10-10 09:28 | XMS_ITS | Patient Health Record ---
Author Organization [facility] Yoko Mcclellan Address [address] [facility] [place] [address] Care Team Providers Care Tearoom Host Name Role Phone Raúl Perkins Unavailable [phone] Reason For Referral No Information Plan Of Treatment No Information Insurance Providers Payer Name Payer Address Payer Phone Subscriber Number Group Number Insured Name Patient Relationship to Insured Coverage Start Date Coverage End Date [facility]-[address] [address] [address] [place] [address] Ashley Hess Self - patient is the insured
--- NOTE | 2024-10-10 09:42 | MHC.PC.OV ---
Vital Signs 10/10/24 09:46 Height 5 ft 3 in Weight 160 lb BMI 28.3 BP 136/80 Blood Pressure Location Rt brachial Position Sitting Respiration 18 Pulse 73 Pulse Source Pulse Oximeter Pulse Oximetry (%) 98 Oxygen Delivery Method Room Air Intake Visit Reasons: Labs f/u Intake Note: Pt is here today to f/u lab results Allergies tetracycline Adverse Reaction (Unknown, Verified 10/10/24 09:59) nausea Medication List - Last Reconciled 10/10/24 by Lorraine Almaguer MD aspirin 81 mg PO DAILY atorvastatin 40 mg PO BEDTIME calcium crb,[id number]-[id number]-genis 300 mg-200 unit -13.5 mg (Citracal Plus Bone Density Builder) 1 tab PO DAILY PRN hydroxyurea 1,000 mg PO DAILY omeprazole 20 mg PO DAILY@0630 Tobacco use date assessed: 10/10/24 Dental Screening Dental Screen Date: 10/10/24 HPI Labs f/u HPI Details - The patient is a 58-year-old female with history of dyslipidemia, generalized anxiety disorder, Crohn's colitis, diabetes mellitus, primary myelofibrosis, coronary artery disease and hyperparathyroidism status post parathyroidectomy in [place], here today for follow-up. - She manages Type 2 Diabetes without medication, showing progression from an A1c of 7 to 6.1 through dietary adjustments. - Her occupational stress substantially which she thinks influenza influences her health, potentially affecting blood glucose levels and causing symptoms like fatigue and hair loss. - She has a history of pre-cancerous myelofibrosis managed with hydroxyurea. - Recent check-ups noted normalized hematological parameters and generally adequate control of chronic conditions, though stress remains a significant factor. [facility] Medical History (Updated 10/10/24 @ 10:56 by Lorraine Almaguer MD) Generalized anxiety disorder Hypertriglyceridemia Diabetes mellitus with hyperglycemia Diabetes mellitus Crohn's colitis History of hyperparathyroidism Vitamin D deficiency Heartburn History of Crohn's disease History of non-ST elevation myocardial infarction (NSTEMI) Coronary artery disease Primary myelofibrosis Surgical History H/O parathyroidectomy History of bone marrow biopsy Hx of colonoscopy History of heart artery stent Family History Mother Breast cancer Social History Household Members: Spouse Housing: House Do you presently have visiting nurse or other home services: No Alcohol intake: current Alcohol intake frequency: holidays/special occasions only Patient Tobacco Use Status: Former Tobacco user Tobacco use type: Cigarette Years Smoked: 10 years e-Cigarette/Vaping Use: Never Used service: No Current occupational status: employed Cognitive needs: No Hearing needs: No Vision needs: Yes Questionnaire Thrive Questionnaire Date Thrive assessed: 05/26/24 I am a: Patient What is your living situation today?: I have a steady place to live Within the past 12 months, did the food you bought not last and you didn't have the money to get more?: Never true Within the past 12 months, did you worry whether your food would run out before you got money to buy more?: Never true Do you have trouble paying for medicines?: No Do you have trouble getting transportation to medical appointments?: No Do you have trouble paying your heating and electricity bill?: No Do you have trouble taking care of your child, family member or friend?: No Do you have trouble with day-to-day activities such as bathing, preparing meals, shopping, managing finances, etc.?: No Are you currently unemployed and looking for a job?: No Are you interested in more education?: No Please select the resources that you would like help with: None Currently or been in a relationship where the following occur: No concerns reported THRIVE Score: 0 JAY-7 AMB Questionnaire JAY-7 Date JAY - 7 assessed: 10/10/24 Feeling nervous, anxious, or on edge: 2 = More than half the days Not being able to stop or control worryin = Several days Worrying too much about different things: 2 = More than half the days Trouble relaxin = Several days Being so restless that it is hard to sit still: 1 = Several days Becoming easily annoyed or irritable: 1 = Several days Feeling afraid as if something awful might happen: 1 = Several days Total JAY-7 score (0-4 normal; 5-9 mild; 10-14 moderate; 15-21 severe): 9 Source: Developed by Drs. Eugene Jimenez, Sirisha CruzАлександр and colleagues, with an educational jessi from [employer]. JAY-7 Assessment Billing JAY-7 Assessment Tool: JAY-7 Assessment 53782 Review of Systems Const Denies body aches, Denies fatigue, Denies fever(s), Denies headache(s) and Denies weakness Eyes Denies change in vision ENT Denies dizziness and Denies headache(s) Card Denies chest pain, Denies lightheadedness, Denies palpitations and Denies dyspnea Resp Denies cough, Denies dyspnea and Denies wheezing GI Denies abdominal pain and Denies heartburn (Controlled with famotidine) Denies hematuria, Denies urinary frequency, Denies dysuria and Denies urinary urgency Musc Denies arthralgias and Denies stiffness Skin/Breast Denies rash Neuro Denies dizziness, Denies headache(s) and Denies weakness Psych Reports no additional complaints Endo Denies fatigue, Denies polydipsia, Denies polyuria and Denies palpitations Graham/Lymph Denies easy bruising Aller/Immun Denies seasonal rhinorrhea and Denies wheezing Physical exam (Primary Care) Vital Signs: Last Vital Signs Pulse 73 10/10/24 09:46 Resp 18 10/10/24 09:46 BP 136/80 10/10/24 09:46 Pulse Ox 98 10/10/24 09:46 Oxygen Delivery Method Room Air 10/10/24 09:46 BMI result Body Mass Index 28.3 Tobacco/Smoking Status: Tobacco use Status Tobacco use date assessed 10/10/24 10/10/24 09:46 Patient Tobacco Use Status Former Tobacco user 10/10/24 09:44 Tobacco use type Cigarette 10/10/24 09:44 e-Cigarette/Vaping Use Never Used 10/10/24 09:44 Thrive Assessment: Date of Thrive Assessment Date Thrive assessed 05/26/24 10/10/24 09:44 Currently or been in a relationship where the following occur: No concerns reported Const General: comfortable and no acute distress Orientation/consciousness: patient oriented x3 HENMT Ears: external ears normal and EAC's normal General nose exam: Normal external nose present Mouth: oropharynx normal and moist mucous membranes Eyes General: appearance normal, both eyes and all related structures Neck Neck: Yes full ROM, Yes no lymphadenopathy and Yes supple Resp Effort & Inspection: normal respiratory effort and able to speak in complete sentences Auscultation: clear to auscultation bilaterally Cardio Rate: regular rate Rhythm: regular rhythm Heart sounds: S1 normal heart sound present and S2 normal heart sound present GI Inspection: Yes normal to inspection Palpation (GI): Soft to palpation, nontender and no masses Auscultation: normal bowel sounds Back/Spine/Pelvis Back: No back tenderness Neuro General: patient oriented x3, gait normal, tone normal, moves all extremities, Normal light touch and pain sensation and no focal motor deficits Cognition (Neuro): normal cognition Gait exam (Neuro): Normal gait present Motor exam (neuro): 5/5 motor strength present throughout Extrem General: Yes full ROM, Yes no joint enlargement, Yes no clubbing, cyanosis or edema, Yes no pedal edema and Yes normal gait Results Reviewed Results Reviewed: Name: Ashley Hess Age/Sex: 58/F : 1965 Unit#: [id number] Attend Dr: Lorraine Almaguer MD Re10/08/24 Status: DEP REF Location: [facility] Disch: SPEC : [id number] MARTA: 10/08/24 STATUS: COMP REQ : [id number] RECD: 10/08/[address]: Lorraine Almaguer MD COMP: 10/08/243 ENTERED: 10/08/24 [facility] DR: ORDERED: Hgb A1c Test Result Flag Reference A1c % 6.1 H <6.0 % Hemoglobin A1C Reference Range Adults: 4.8 - 6.0 % Non diabetic: < 6.0 % Goal: < 7.0 % Additional Action Suggested: > 8.0 % Note: Hemoglobin A1c results are invalid for patients with abnormal amounts of HbF. Blood transfusions may impact the HbA1c concentration in the patient sample. Est. Avg. Gluc 128 mg/dL eAG = Estimated average glucose which is %A1C expressed as average glucose, using the formula of the [id number] Average Glucose study (ADAG), Diabetes Care, Vol.31,#8, 2007 Name: Ashley Hess Age/Sex: 58/F : 1965 Unit#: [id number] Attend Dr: Lorraine Almaguer MD Re10/08/24 Status: DEP REF Location: [facility] Disch: SPEC : [id number] MARTA: 10/08/24 STATUS: COMP REQ : [id number] RECD: 10/08/24-[address]: Lorraine Almaguer MD COMP: 10/08/24-1204 ENTERED: 10/08/[address]: ORDERED: AST, ALT, Lipid Panel, Vitamin D 25-OH Test Result Flag Reference AST (GOT) 28 5-31 U/L ALT (GPT) 28 0-31 U/L Triglyceride 158 H <150 mg/dL Desirable Triglyceride: less than 150 mg/dL Borderline High Triglyceride 150-199 mg/dL High Triglyceride: 200-499 mg/dL Very High Triglyceride: greater than or equal to 5OO mg/dL Cholesterol 184 <200 mg/dL Desirable Cholesterol: less than 200 mg/dL Borderline High Cholesterol: 200-239 mg/dL High Cholesterol: greater than 239 mg/dL LDL Calculated 97 <100 mg/dL Desirable LDL: less than 100 mg/dL Near Optimal/Above Optimal LDL: 110-129 mg/dL Borderline High LDL: 130-159 mg/dL High LDL: 160-189 mg/dL Very High LDL: greater than or equal to 190 mg/dL HDL 56 >40 mg/dL Desirable HDL: greater than 40 mg/dL Note: This HDL assay may give artificially low results in patients with liver disease. Vitamin D 25-OH 76.3 >30 ng/mL Health Based Reference Values* < 20 ng/mL Deficient 20-30 ng/mL Insufficient > 30 ng/mL Sufficient Coding Level of Care Code Est Pt Level 4 (82984) Complex EM visit Add On G2211 Diagnoses Hypertriglyceridemia E78.1 Diabetes mellitus E11.9 Primary myelofibrosis D47.1 Generalized anxiety disorder F41.1 Additional Codes JAY-7 Assessment Billing - JAY-7 Assessment Tool: JAY-7 Assessment 46782 ([id number]) Assessment & Plan Assessment & Plan (1) Hypertriglyceridemia: Code(s): E78.1 - Pure hyperglyceridemia Category: Medical Plan: Latest fasting labs showed mildly elevated triglycerides. Will continue on atorvastatin 40 mg daily, reinforced importance of following a low-cholesterol diet and getting regular exercise. (2) Diabetes mellitus: Code(s): E11.9 - Type 2 diabetes mellitus without complications Category: Medical Plan: Currently not on any medication for diabetes control. Latest hemoglobin A1c is at 6.1%, reminded to get yearly diabetes retinopathy screening done. Continue with adherence to healthy eating habits and regular exercise. (3) Primary myelofibrosis: Comment: With thrombocytosis 2019, ff'd at [facility], sees Dr Dubose Code(s): D47.1 - Chronic myeloproliferative disease Category: Medical Plan: Followed by oncology, currently on hydroxy urea 1000 mg once a day (4) Generalized anxiety disorder: Code(s): F41.1 - Generalized anxiety disorder Category: Medical Plan: Will start on sertraline 50 mg per tablet initially take half a tablet or 25 mg daily for the next 7 days and may increase dose to 50 mg tablet daily on the 2nd week if needed. Patient declined referral for counseling. Schedule telehealth visit in November 2024 for follow-up Orders: Orders Basic Metabolic Panel Fasting 01/23/25 E11.9 - Type 2 diabetes mellitus without complications, E78.1 - Pure hyperglyceridemia, I25.10 - Atherosclerotic heart disease of [place]ga[place] coronary artery without angina pectoris Aspartate Amino Transferase 01/23/25 E11.9 - Type 2 diabetes mellitus without complications, E78.1 - Pure hyperglyceridemia, I25.10 - Atherosclerotic heart disease of [place] coronary artery without angina pectoris Hemoglobin A1c 01/23/25 E11.9 - Type 2 diabetes mellitus without complications, E78.1 - Pure hyperglyceridemia, I25.10 - Atherosclerotic heart disease of [place] coronary artery without angina pectoris Vitamin D 25-OH Total 01/23/25 E11.9 - Type 2 diabetes mellitus without complications, E78.1 - Pure hyperglyceridemia, I25.10 - Atherosclerotic heart disease of [place] coronary artery without angina pectoris Alanine Aminotransferase 01/23/25 E11.9 - Type 2 diabetes mellitus without complications, E78.1 - Pure hyperglyceridemia, I25.10 - Atherosclerotic heart disease of [place] coronary artery without angina pectoris Lipid Panel 01/23/25 E11.9 - Type 2 diabetes mellitus without complications, E78.1 - Pure hyperglyceridemia, I25.10 - Atherosclerotic heart disease of [place] coronary artery without angina pectoris Microalbumin, Random (w Creat) 01/23/25 E11.9 - Type 2 diabetes mellitus without complications, E78.1 - Pure hyperglyceridemia, I25.10 - Atherosclerotic heart disease of [place] coronary artery without angina pectoris Medications: New sertraline Take 1/2 tablet or 25 mg once a day for the 1st week and then increase dose to 50 mg or a whole tablet thereafter 50 mg PO DAILY 30 tabs 1RF F41.1 - Generalized anxiety disorder
[2024-10-10 09:46] VITALS: BP 136/80; PULSE 73; RESP 18; O2SAT 98; BMI 28.3
== END 2024-10-10 10:58 | disposition home or self-care (01) ==
LOC: HO.HMCC 09:16
PROVIDERS: PCP Internal Medicine; Visit Provider Internal Medicine
DX: E78.1 Pure hyperglyceridemia (principal); E11.9 Type 2 diabetes mellitus without complications; D47.1 Chronic myeloproliferative disease; F41.1 Generalized anxiety disorder

== ENCOUNTER → 2024-10-10 09:15 | Outpatient (BNVA) | payer OTHER, SELFPAY | PROVIDERS: PCP Internal Medicine; Visit Provider Internal Medicine | DX: E78.1 Pure hyperglyceridemia (principal); E11.9 Type 2 diabetes mellitus without complications; D47.1 Chronic myeloproliferative disease; F41.1 Generalized anxiety disorder | CPT/HCPCS: 96127 ==

== ENCOUNTER 2025-02-02 10:53 | Outpatient (AMB) | payer OTHER, SELFPAY ==
[2025-02-02 11:10] VITALS: BP 100/70; PULSE 63; RESP 16; TEMP 36.6; O2SAT 97; BMI 27.5
--- NOTE | 2025-02-02 11:10 | MHC.PC.OV ---
Vital Signs 02/02/25 11:10 Height 5 ft 3 in Weight 155 lb BMI 27.5 BP 100/70 Blood Pressure Location Lt brachial Position Sitting Respiration 16 Pulse 63 Pulse Source Pulse Oximeter Temp 97.8 F Temp Source Oral Pulse Oximetry (%) 97 Oxygen Delivery Method Room Air Intake Visit Reasons: pe Intake Note: Pt is here today for her PE: Allergies tetracycline Adverse Reaction (Unknown, Verified 02/08/25 01:52) nausea Medication List - Last Reconciled 02/08/25 by Lorraine Almaguer MD aspirin 81 mg PO DAILY Held on 05/17/24. Instructions: Resume on 05/24/24. can resume in 1 week if no further bleeding, d/w your pcp prior to starting atorvastatin 40 mg PO BEDTIME hydroxyurea 1,000 mg PO DAILY Tobacco use date assessed: 02/02/25 Dental Screening Dental Screen Date: 02/02/25 Did you have a dental visit in the last 12 months?: Yes Did you have a dental problem in the last 6 months where you did not have access to dental care?: No Was dental information given to patient?: Patient has dentist HPI pe HPI Details 59-year-old lady with history of dyslipidemia, generalized anxiety disorder, Crohn's colitis , primary myelofibrosis, here today for her physical exam. Last mammogram was done at [facility] 05/24/2024 with benign findings, and had a bone density scan ordered by Dr. Gutiérrez on 06/26/2022 which showed normal findings. She had a colon cancer screening with colonoscopy done by Dr. Mendes in 2021 which showed hemorrhoids, repeat due again in 2031. Has history hyperparathyroidism status post parathyroidectomy in [place]. She has type 2 Diabetes currently managed through diet, latest hemoglobin A1c was 6.1% 10/08/2024. She also had a fasting lipid panel done same day which showed improvement in her triglyceride levels now almost back to normal with age LDL cholesterol less than 100 mg/dL. Patient currently on atorvastatin 40 mg daily [facility] Medical History Generalized anxiety disorder Hypertriglyceridemia Diabetes mellitus with hyperglycemia Diabetes mellitus Crohn's colitis History of hyperparathyroidism Vitamin D deficiency Heartburn History of Crohn's disease History of non-ST elevation myocardial infarction (NSTEMI) Coronary artery disease Primary myelofibrosis Surgical History H/O parathyroidectomy History of bone marrow biopsy Hx of colonoscopy History of heart artery stent Family History Mother Breast cancer Social History Household Members: Spouse Housing: House Do you presently have visiting nurse or other home services: No Alcohol intake: current Alcohol intake frequency: holidays/special occasions only Patient Tobacco Use Status: Former Tobacco user Tobacco use type: Cigarette Years Smoked: 10 years e-Cigarette/Vaping Use: Never Used service: No Current occupational status: employed Cognitive needs: No Hearing needs: No Vision needs: Yes Questionnaire PHQ-9 Over the last 2 weeks, how often have you been bothered by any of the following problems? 1. Little interest or pleasure in doing things: not at all 2. Feeling down, depressed, or hopeless: not at all 3. Trouble falling or staying asleep, or sleeping too much: more than half the days 4. Feeling tired or having little energy: not at all 5. Poor appetite or overeating: not at all 6. Feeling bad about yourself - or that you are a failure or have let yourself or your family down: not at all 7. Trouble concentrating on things, such as reading the newspaper or watching television: not at all 8. Moving or speaking so slowly that other people could have noticed. Or the opposite - being so fidgety or restless that you have been moving around a lot more than usual: not at all 9. Thoughts that you would be better off or of hurting yourself in some way: not at all Total score: 2 Depression Screening Interpretation: Negative Depression Screening Done: Yes Source: Developed by Drs. Eugene Jimenez, Sirisha Cruz, Александр Nieves and colleagues, with an educational jessi from [employer]. Thrive Questionnaire Date Thrive assessed: 05/26/24 Currently or been in a relationship where the following occur: No concerns reported THRIVE Score: 0 AUDIT C Alcohol Use Questionnaire (AUDIT-C) 1. How often do you have a drink containing alcohol?: Monthly or less 2. How many drinks containing alcohol do you have on a typical day when you are drinking?: 1 or 2 3. How often do you have six or more drinks on one occasion?: Never Total Score: 1 JAY-7 AMB Questionnaire JAY-7 Date JAY - 7 assessed: 10/10/24 Source: Developed by Drs. Eugene Jimenez, Sirisha Cruz, Александр Nieves and colleagues, with an educational jessi from [employer]. Review of Systems Const Denies body aches, Denies fatigue, Denies fever(s), Denies headache(s) and Denies weakness Eyes Denies change in vision ENT Denies dizziness and Denies headache(s) Card Denies chest pain, Denies lightheadedness, Denies palpitations and Denies dyspnea Resp Denies cough, Denies dyspnea and Denies wheezing GI Denies abdominal pain and Denies heartburn (Controlled with famotidine) Denies hematuria, Denies urinary frequency, Denies dysuria and Denies urinary urgency Musc Denies arthralgias and Denies stiffness Skin/Breast Denies rash Neuro Denies dizziness, Denies headache(s) and Denies weakness Psych Reports no additional complaints Endo Denies fatigue, Denies polydipsia, Denies polyuria and Denies palpitations Graham/Lymph Denies easy bruising Aller/Immun Denies seasonal rhinorrhea and Denies wheezing Physical exam (Primary Care) Vital Signs: Last Vital Signs Temp 97.8 F 02/02/25 11:10 Pulse 63 02/02/25 11:10 Resp 16 02/02/25 11:10 BP 100/70 02/02/25 11:10 Pulse Ox 97 02/02/25 11:10 Oxygen Delivery Method Room Air 02/02/25 11:10 BMI result Body Mass Index 27.5 Tobacco/Smoking Status: Tobacco use Status Tobacco use date assessed 02/02/25 02/02/25 11:11 Patient Tobacco Use Status Former Tobacco user 02/02/25 11:11 Tobacco use type Cigarette 02/02/25 11:11 e-Cigarette/Vaping Use Never Used 02/02/25 11:11 PHQ-9: PHQ-9 Score PHQ-9: Total score 2 02/08/25 01:57 Depression Screening Interpretation: Negative Thrive Assessment: Date of Thrive Assessment Date Thrive assessed 05/26/24 02/02/25 11:11 Currently or been in a relationship where the following occur: No concerns reported Advance Care Planning discussion: Completed/Scanned Date of discussion: 02/02/25 Who was present: patient Forms completed: Health Care Proxy Time spent: 16-45 minutes Actual minutes spent: 2 Const General: comfortable and no acute distress Orientation/consciousness: patient oriented x3 HENMT Ears: external ears normal and EAC's normal General nose exam: Normal external nose present Mouth: oropharynx normal and moist mucous membranes Eyes General: appearance normal, both eyes and all related structures Neck Neck: Yes full ROM, Yes no lymphadenopathy and Yes supple Resp Effort & Inspection: normal respiratory effort and able to speak in complete sentences Auscultation: clear to auscultation bilaterally Cardio Rate: regular rate Rhythm: regular rhythm Heart sounds: S1 normal heart sound present and S2 normal heart sound present GI Inspection: Yes normal to inspection Palpation (GI): Soft to palpation, nontender and no masses Auscultation: normal bowel sounds Back/Spine/Pelvis Back: No back tenderness Skin General skin exam: no rashes or lesions noted Neuro General: patient oriented x3, gait normal, tone normal, moves all extremities, Normal light touch and pain sensation and no focal motor deficits Cognition (Neuro): normal cognition Gait exam (Neuro): Normal gait present Motor exam (neuro): 5/5 motor strength present throughout Extrem General: Yes full ROM, Yes no joint enlargement, Yes no clubbing, cyanosis or edema, Yes no pedal edema and Yes normal gait Psych Appearance: grossly normal Mental Status: mental status grossly normal Speech and movement: Normal speech and movement present Affect: normal affect Results Reviewed Results Reviewed: deshawn: Ashley Hess Age/Sex: 58/F : 1965 Unit#: [id number] Attend Dr: Lorraine Almaguer MD Re10/08/24 Status: DEP [facility] Disch: SPEC : [id number] MARTA: 10/08/24 STATUS: COMP REQ : [id number] RECD: 10/08/[address]: Lorraine Almaguer MD COMP: 10/08/241143 ENTERED: 10/08/[address]: ORDERED: Hgb A1c Test Result Flag Reference A1c % 6.1 H <6.0 % Hemoglobin A1C Reference Range Adults: 4.8 - 6.0 % Non diabetic: < 6.0 % Goal: < 7.0 % Additional Action Suggested: > 8.0 % Note: Hemoglobin A1c results are invalid for patients with abnormal amounts of HbF. Blood transfusions may impact the HbA1c concentration in the patient sample. Est. Avg. Gluc 128 mg/dL eAG = Estimated average glucose which is %A1C expressed as average glucose, using the formula of the D6L-Bexcugg Average Glucose study (ADAG), Diabetes Care, Vol.31,#8, 2007 Name: Ashley Hess Age/Sex: 58/F : 1965 Unit#: [id number] Attend Dr: Lorraine Almaguer MD Re10/08/24 Status: DEP REF Location: [facility] Disch: SPEC : [id number] MARTA: 10/08/24 STATUS: COMP REQ : [id number] RECD: 10/08/24-[address]: Lorraine Almaguer MD COMP: 10/08/244 ENTERED: 10/08/24 JESUS CASTREJON: ORDERED: AST, ALT, Lipid Panel, Vitamin D 25-OH Test Result Flag Reference AST (GOT) 28 5-31 U/L ALT (GPT) 28 0-31 U/L Triglyceride 158 H <150 mg/dL Desirable Triglyceride: less than 150 mg/dL Borderline High Triglyceride 150-199 mg/dL High Triglyceride: 200-499 mg/dL Very High Triglyceride: greater than or equal to 5OO mg/dL Cholesterol 184 <200 mg/dL Desirable Cholesterol: less than 200 mg/dL Borderline High Cholesterol: 200-239 mg/dL High Cholesterol: greater than 239 mg/dL LDL Calculated 97 <100 mg/dL Desirable LDL: less than 100 mg/dL Near Optimal/Above Optimal LDL: 110-129 mg/dL Borderline High LDL: 130-159 mg/dL High LDL: 160-189 mg/dL Very High LDL: greater than or equal to 190 mg/dL HDL 56 >40 mg/dL Desirable HDL: greater than 40 mg/dL Note: This HDL assay may give artificially low results in patients with liver disease. Vitamin D 25-OH 76.3 >30 ng/mL Health Based Reference Values* < 20 ng/mL Deficient 20-30 ng/mL Insufficient > 30 ng/mL Sufficient Coding Level of Care Code Est Pt Prev Care 40-64y(13093) Diagnoses Annual visit for general adult medical examination with abnormal findings Z00.01 Coronary artery disease involving [place] coronary artery of [place] heart without angina pectoris I25.10 Associated angina: without angina Coronary Disease-Associated Artery/Lesion type: [place] artery [place] vs. transplanted heart: [place] heart Hypertriglyceridemia E78.1 Diabetes mellitus E11.9 Primary myelofibrosis D47.1 Crohn's colitis K50.10 Advance directive discussed with patient Z71.89 Additional Codes Vital Signs *Quality* - Advance Care Planning discussion: Completed/Scanned ([id number]) Vital Signs *Quality* - Time spent: 16-45 minutes ([id number]) Assessment & Plan Assessment & Plan (1) Annual visit for general adult medical examination with abnormal findings: Code(s): Z00.01 - Encounter for general adult medical examination with abnormal findings Plan: Will check appropriate labs. Recommended dental visit every 6 months and yearly eye exam. Take adequate calcium in diet and vitamin-D 3 at 2000 IU per cap once a day, in addition to weight-bearing exercises to help maintain good muscle tone and weight control. Instructed to do self-breast exam, and continue to get yearly mammogram, last bone density density scan showed normal results. Up-to-date with screening colonoscopy, reminded to get flu vaccine yearly updated COVID as well as pneumonia vaccine and shingles vaccination, patient however stent to get vaccines today (2) Coronary artery disease: Code(s): I25.10 - Atherosclerotic heart disease of [place] coronary artery without angina pectoris Category: Medical Qualifiers: Associated angina: without angina Coronary Disease-Associated Artery/Lesion type: [place] artery [place] vs. transplanted heart: [place] heart Qualified Code(s): I25.10 - Atherosclerotic heart disease of [place] coronary artery without angina pectoris Plan: Continue aspirin 81 mg daily (3) Hypertriglyceridemia: Code(s): E78.1 - Pure hyperglyceridemia Category: Medical Plan: Continue atorvastatin 40 mg daily, in addition to adherence to healthy habits and regular exercise (4) Diabetes mellitus: Code(s): E11.9 - Type 2 diabetes mellitus without complications Category: Medical Plan: Controlled with diet, latest hemoglobin A1c at 6.1% (5) Primary myelofibrosis: Comment: With thrombocytosis 2020, ff'd at [facility], sees Dr Dubose Code(s): D47.1 - Chronic myeloproliferative disease Category: Medical Plan: Currently on hydroxy urea (6) Crohn's colitis: Code(s): K50.10 - Crohn's disease of large intestine without complications Category: Medical Plan: Currently asymptomatic, up-to-date with her colonoscopy (7) Advance directive discussed with patient: Code(s): Z71.89 - Other specified counseling Plan: Initiated the conversation about Advanced Directives. Advanced Directives help patients prepare for current and future decisions about their medical treatment and place of care. Discussed with patient that it is a process where a patients current condition and prognosis are reviewed, their wishes for information regarding their illness are elicited, and likely medical dilemmas are presented and options discussed. Healthcare proxy form completed. The form can be amended as needed, reviewed yearly and make changes as needed
--- OUTSIDE RECORDS SUMMARY | 2025-02-02 14:51 | XMS_ITS | Patient Health Record ---
Author Organization [facility] Address [address] [place] [address] Care Team Providers Care Web Merchandiser Name Role Phone [facility] Unavailable [phone] Referred, Self Unavailable [phone] Allergies Allergen (clinical drug ingredient) Drug/Non Drug Allergy documented on EMR Reaction Allergy Type Onset Date Status tetracycline Tetracycline nausea Drug Allergy A ctive Reason For Referral No Information Problems Problem Type SNOMED Code ICD Code Onset Dates Problem Status W/U Status Risk Notes Problem Primary hyperparathyroidism (95229042) Primary hyperparathyroidism (E21.0) Active confirmed Plan Of Treatment No Information Insurance Providers Payer Name Payer Address Payer Phone Subscriber Number Group Number Insured Name Patient Relationship to Insured Coverage Start Date Coverage End Date R [address] [address] [place] [address] [phone] [id number] Ashley Hess Self - patient is the insured
== END 2025-02-02 12:23 | disposition home or self-care (01) ==
PROVIDERS: PCP Internal Medicine; Visit Provider Internal Medicine
DX: Z00.01 Encounter for general adult medical examination with abnormal findings (principal); I25.10 Atherosclerotic heart disease of native coronary artery without angina pectoris; E78.1 Pure hyperglyceridemia; E11.9 Type 2 diabetes mellitus without complications; D47.1 Chronic myeloproliferative disease; K50.10 Crohn's disease of large intestine without complications; Z71.89 Other specified counseling; Z00.00 Encounter for general adult medical examination without abnormal findings